=== PATIENT | male | born 1945 | race Caucasian/White ===

== ENCOUNTER 2016-11-10 00:12 | Inpatient (IN) | payer MEDICARE, OTHER ==
[2016-11-10] VITALS (12 sets, daily range): BP systolic 111–139; BP diastolic 59–73; PULSE 82–162; RESP 18; Ht 167.6 cm; Wt 63.9 kg
[~2016-11-10] VITALS: Ht 167.6 cm; Wt 63.9 kg
[2016-11-10] MEDS ORDERED: ASPIRIN 325 MG TAB PO STA (00:19)
[2016-11-10] MEDS ORDERED: ONDANSETRON 4 MG INJ IV STA (00:19)
[2016-11-10] MEDS ORDERED: SOD CHLORIDE 0.9% 1,000 ML IV STA (00:19)
--- NOTE | 2016-11-10 01:19 | RADRPT ---
PROCEDURE: XR Chest. CLINICAL INDICATION: Patient experiencing Chest Pain. TECHNIQUE: Single frontal chest x-ray. COMPARISON: None. FINDINGS: The heart does not appear to be grossly enlarged. There is minimal prominence of the lung interstit ium likely minimal chronic changes. No focal lung consolidation is seen. The patient appears to lik mic be status post CABG. Calcification in the aortic arch. ECG leads are projected over the chest. . IMPRESSION: 1. There is no acute cardiopulmonary process. RPTAT: HJES .Ranjan Calvo MD, MD Date Time Electronically viewed and signed by .Ranjan Cavlo MD, MD on 11/10/2016 01:19 .S/
[2016-11-10 01:22] LABS: BASOPHIL # 0.2 10^3/ul (0.0-0.1); BASOPHILS % 1.7 % (0.0-2.0); EOSINOPHILS # 0.2 10^3/ul (0.0-0.5); HEMATOCRIT 30.9 % (42.0-52.0); HEMOGLOBIN 10.1 g/dl (14.0-18.0); LYMPHOCYTES # 1.6 10^3/ul (0.8-2.9); LYMPHOCYTES % 16.7 % (15.0-51.0); MEAN CORPUSCULAR HEMOGLOBIN 25.8 pg (29.0-33.0); MEAN CORPUSCULAR HGB CONC 32.7 g/dl (32.0-37.0); MEAN CORPUSCULAR VOLUME 78.9 fl (82.0-101.0); MEAN PLATELET VOLUME 10.4 fl (7.4-10.4); MONOCYTE # 0.7 10^3/ul (0.3-0.9); MONOCYTES % 7.2 % (0.0-11.0); NEUTROPHIL # 6.8 10^3/ul (1.6-7.5); NEUTROPHILS % 72.4 % (39.0-77.0); PLATELET COUNT 329 10^3/UL (140-440); RED BLOOD COUNT 3.91 10^6/ul (4.70-6.10); UNCORRECTED WBC 9.3 10^3/ul (4.8-10.8); WHITE BLOOD COUNT 9.3 10^3/ul (4.8-10.8)
[2016-11-10 01:28] LABS: ALBUMIN 3.5 g/dl (3.3-4.9); INR 1.17; PARTIAL THROMBOPLASTIN TIME 29.9 Sec (25.0-35.0); POTASSIUM 5.5 mmol/L (3.5-5.1); PT RATIO 1.2
[2016-11-10 01:30] LABS: BILIRUBIN,INDIRECT 0.2 mg/dl (0-1.1); BILIRUBIN,TOTAL 0.2 mg/dl (0.2-1.3); CREATININE 2.29 mg/dl (0.61-1.24)
[2016-11-10] MEDS ORDERED: METOPROLOL 5 MG INJ IV ONE (01:30)
[2016-11-10 01:31] LABS: ALBUMIN/GLOBULIN RATIO 0.76; CALCIUM 9.3 mg/dl (8.4-10.2); TOTAL PROTEIN 8.1 g/dl (6.1-8.1)
[2016-11-10 01:41] LABS: CONDITION 1; LH ANALYZER COMMENTS 1
[2016-11-10 02:10] LABS: TROPONIN-I 0.134 ng/ml (0.00-0.12)
[2016-11-10 02:36] LABS: ADD UMIC YES; URINE BILIRUBIN (Dip) NEGATIVE (NEGATIVE); URINE BLOOD (Dip) NEGATIVE (NEGATIVE); URINE COLOR LT. YELLOW (YELLOW); URINE GLUCOSE (Dip) NEGATIVE (NEGATIVE); URINE KETONES (Dip) NEGATIVE (NEGATIVE); URINE LEUKOCYTE ESTERASE (Dip) NEGATIVE (NEGATIVE); URINE NITRITE (Dip) NEGATIVE (NEGATIVE); URINE TOTAL PROTEIN (Dip) 2+ (NEGATIVE); URINE UROBILINOGEN (Dip) 0.2 E.U./dL (0.1-1.0)
[2016-11-10] MEDS ORDERED: NA POLYST SULFON 15 GM/60 ML BTL PO ONE (03:00)
[2016-11-10 03:19] LABS: BACTERIA,URINE MANY; SQUAMOUS EPITHELIAL CELL,UR FEW; URINE RBCS 0-2 /HPF (0)
[2016-11-10] MEDS ORDERED: ONDANSETRON 4 MG INJ IV PRN ×2 (03:30→08:00)
[2016-11-10] MEDS ORDERED: ACETAMINOPHEN 325 MG TAB PO PRN ×2 (03:30→08:00)
--- NOTE | 2016-11-10 04:28 | ERA ---
ER Documentation Chief Complaint Date/Time DATE: 11/10/16 TIME: 04:01 Chief Complaint generalized weakness, loss of appetite X6 days HPI This 71-year-old male was brought to the ER with generalized weakness and dizziness for 2 days and loss of appetite for the last 6 days. He denies any pain. States that he has mild shortness of breath. Denies fevers and chills. Paramedics report stable vital signs. However on our monitors patient does have irregularly irregular tachycardia. ROS All systems reviewed and are negative except as per history of present illness. Allergies Allergies: Coded Allergies: No Known Allergy (Unverified , 11/10/16) PMhx/Soc History of Surgery: Yes (CABG X 4 VESSELS) Anesthesia Reaction: No Hx Neurological Disorder: Yes (CVA) Hx Respiratory Disorders: No Hx Cardiac Disorders: Yes (AFLUTTER, HTN, CAD, DC) Hx Psychiatric Problems: No Hx Miscellaneous Medical Probl: Yes (DM) Hx Alcohol Use: No Hx Substance Use: No Hx Tobacco Use: Yes Smoking Status: Current every day smoker Physical Exam Vitals Vital Signs Date Time Temp Pulse Resp B/P Pulse Ox O2 Delivery O2 Flow Rate FiO2 11/10/16 03:33 85 16 121/75 100 Room Air 11/10/16 02:00 69 22 140/96 100 Room Air 11/10/16 00:17 96.7 116 18 139/73 100 Physical Exam Const: [] Mild distress Head: Atraumatic Eyes: Normal Conjunctiva, EOMI, PERRLA ENT: Normal External Ears, Nose and Mouth. Neck: Full range of motion..~ No meningismus. Resp: Bibasilar rales, good air movement both lungs Cardio: Irregularly irregular tachycardia, no murmur appreciated Abd: Soft, non tender, non distended. Normal bowel sounds Skin: No petechiae or rashes Back: No midline or flank tenderness Ext: No cyanosis, or edema Neur: Awake and alert and oriented 3, does seem slightly confused, tenderness to through 12 are intact, no cerebellar deficits, gait not tested Psych: Normal Mood and Affect Result Diagram: 11/10/1610411/10/16104 Results 24 hrs Laboratory Tests Test 11/10/16 01:05 11/10/16 02:00 Activated Partial Thromboplast Time 29.9Sec Alanine Aminotransferase (ALT/SGPT) 19IU/L Albumin 3.5g/dl Albumin/Globulin Ratio 0.76 Alkaline Phosphatase 139IU/L Anion Gap 22 Aspartate Amino Transf (AST/SGOT) 21IU/L B-Type Natriuretic Peptide 82629PJ/ML Basophils # 0.210^3/ul Basophils % 1.7% Blood Morphology Comment Blood Urea Nitrogen 55mg/dl Calcium Level 9.3mg/dl Carbon Dioxide Level 17mmol/L Chloride Level 105mmol/L Creatinine 2.29mg/dl Direct Bilirubin 0.00mg/dl Eosinophils # 0.210^3/ul Eosinophils % 2.0% Globulin 4.60g/dl Glucose Level 139mg/dl Hematocrit 30.9% Hemoglobin 10.1g/dl INR International Normalized Ratio 1.17 Indirect Bilirubin 0.2mg/dl Lymphocytes # 1.610^3/ul Lymphocytes % 16.7% Mean Corpuscular Hemoglobin 25.8pg Mean Corpuscular Hemoglobin Concent 32.7g/dl Mean Corpuscular Volume 78.9fl Mean Platelet Volume 10.4fl Monocytes # 0.710^3/ul Monocytes % 7.2% Neutrophils # 6.810^3/ul Neutrophils % 72.4% Nucleated Red Blood Cells # 0.010^3/ul Nucleated Red Blood Cells % 0.0/100WBC Platelet Count 88945^3/UL Potassium Level 5.5mmol/L Prothrombin Time 15.0Sec Prothrombin Time Ratio 1.2 Red Blood Count 3.9110^6/ul Red Cell Distribution Width 18.0% Sodium Level 138mmol/L Total Bilirubin 0.2mg/dl Total Protein 8.1g/dl Troponin I 0.134ng/ml White Blood Count 9.310^3/ul Urine Bacteria MANY Urine Bilirubin NEGATIVE Urine Clarity CLEAR Urine Color LT. YELLOW Urine Glucose NEGATIVE% Urine Hemoglobin NEGATIVE Urine Ketones NEGATIVE Urine Leukocyte Esterase NEGATIVE Urine Microscopic RBC 0-2/HPF Urine Microscopic WBC 0-2/HPF Urine Nitrite NEGATIVE Urine Specific [place] 1.025 Urine Squamous Epithelial Cells FEW Urine Total Protein 2+ Urine Urobilinogen 0.2 E.U./dL Urine pH 5.5 Current Medications Medications (Trade) Dose Ordered Sig/Gerardo Route PRN Reason Start Time Stop Time Status Last Admin Dose Admin Sodium Chloride (NS) 1,000 ml @ 1,000 mls/hr Q1H STAT IV 11/10/16 00:19 11/10/16 01:18 DC 11/10/16 01:24 Aspirin (Aspirin) 325 mg ONCE STAT PO 11/10/16 00:19 11/10/16 00:23 DC 11/10/16 01:23 Ondansetron HCl (Zofran Inj) 4 mg ONCE STAT IV 11/10/16 00:19 11/10/16 00:24 DC 11/10/16 01:23 Metoprolol Tartrate (Lopressor) 5 mg ONCE ONCE IV 11/10/16 01:30 11/10/16 01:31 DC 11/10/16 01:23 Sodium Polystyrene Sulfonate (Kayexalate) 30 gm ONCE ONCE PO 11/10/16 03:00 11/10/16 03:01 DC 11/10/16 03:17 Ondansetron HCl (Zofran Inj) 4 mg ER BRIDGE PRN IV NAUSEA AND/OR VOMITING 11/10/16 03:30 11/11/16 03:29 Acetaminophen (Tylenol Tab) 650 mg ER BRIDGE PRN PO MILD PAIN/FEVER 11/10/16 03:30 11/11/16 03:29 Procedures/MDM Elderly male with new onset A. letter with RVR, acute kidney injury, hyperkalemia, congestive heart failure. Atrial flutter is likely causing his symptoms of dizziness and shortness of breath. His son arrived and gave me the history that he does not like to drink water. He likely has decreased thirst drive due to age. He states that he does not get hungry either. He has been on medication for his heart before but does not take it. He remained in a flutter with RVR until he was given metoprolol 5 mg IV. After this his heart rate became rate controlled atrial fibrillation and he said that he no longer felt dizzy or weak. Symptoms had resolved Medication noncompliance is deathly a factor. Is given a liter of IV fluid for his renal failure and Kayexalate for his potassium. His also given aspirin for elevated troponin. No additional fluids were given because of his concomitant congestive heart failure with a BNP of almost 20,000. He is being admitted to telemetry for further monitoring and management. A spoke with Dr. Devlin who will be admitting. EKG interpretation: Atrial flutter with very little AV block rate of 116, bifascicular block, right axis deviation, no apparent ST or T-wave changes concerning for STEMI traffic operations engineer interpretation: Initial A. fib and a flutter with RVR phone by rate controlled A. fib after metoprolol Chest x-ray interpretation: I see no acute processes no widened mediastinum and pneumothorax no pulmonary edema, no fractures Critical care time 44 minutes: This includes time spent managing ill-appearing patient with a flutter with RVR, careful fluid administration with concomitant CHF, metoprolol vasoactive medication usage, multiple visits patient's bedside assessing his status and reassess fluid status, chart review, discussion with patient, family, admitting doctor. This does not include billable procedures Departure Diagnosis: Primary Impression: Atrial flutter with rapid ventricular response Additional Impressions: New onset atrial flutter Congestive heart failure Acute kidney injury Hyperkalemia FRANK PACHECO DO Nov 10, 2016 04:14
[2016-11-10] MEDS ORDERED: morphine 2 MG INJ IV PRN ×2 (05:30→08:00)
[2016-11-10] MEDS ORDERED: NACL 0.9% 3 ML SYG IV SCH (08:00)
[2016-11-10] MEDS ORDERED: DOCUSATE SODIUM 100 MG CAP PO PRN (08:00)
[2016-11-10] MEDS ORDERED: HYDROCODONE/APAP (5/325) TAB PO PRN (08:00)
[2016-11-10] MEDS ORDERED: NITROGLYCERIN (SL) 0.4 MG TAB SL PRN (08:00)
[2016-11-10 08:10] LABS: CREATINE KINASE < 20 IU/L (23-200)
[2016-11-10 08:14] LABS: CK-MB 0.59 ng/ml (0.0-2.4)
[2016-11-10 08:17] LABS: CHOL/HDL RATIO 9.9 RATIO
[2016-11-10] MEDS: ENOXAPARIN 30 MG/0.3 ML SYG SC SCH (08:59)
--- NOTE | 2016-11-10 12:08 | HP ---
DATE OF ADMISSION: 11/10/2016 TIME: 7:15 a.m. CHIEF COMPLAINT: Palpitations. HISTORY OF PRESENT ILLNESS: The patient is a 71-year-old male with a history of coronary artery dis ease, status post bypass surgery in the past. The patient appears to have some dementia as well as he is a poor historian, presents to the ED with complaint of palpitations with weakness and dizzines s for 2 days and loss of appetite for several days. The patient's main issue, though, is the palpit ations. In the ED, he was found to have a flutter. He denies any history of any arrhythmias in the past, has no new complaints at this time. The patient once again does appear to be demented. PAST MEDICAL HISTORY: Coronary artery disease, status post coronary artery bypass graft in the past . His remaining medical history is unclear at this time but according to the ER report, the patient has history of atrial flutter, hypertension, coronary artery disease as well as SC and CVA and also question of diabetes. HOME MEDICATIONS: None reported. ALLERGIES: NO KNOWN DRUG ALLERGIES. FAMILY HISTORY: Noncontributory. SOCIAL HISTORY: According to the ER report, no reports of alcohol abuse, no substance abuse reporte d. The patient does smoke daily. REVIEW OF SYSTEMS: A 12-point review of systems negative except that in the HPI. PHYSICAL EXAMINATION: VITAL SIGNS: Temperature is 97.4, pulse now is 96, respiratory rate 18, BP is 139/71, saturation 99 % on room air. GENERAL: No acute distress, alert and oriented to his name but nothing else. HEENT: Normocephalic, atraumatic. LUNGS: Clear to auscultation. CARDIOVASCULAR: Irregularly irregular. ABDOMEN: Nondistended, nontender, soft. EXTREMITIES: No clubbing, cyanosis, or edema. LABORATORIES: White count is 10.3, hemoglobin 7.1, platelets 229. Chemistry: Sodium is 138, potas sium is 5.5, creatinine is 2.29, BUN is 55. Troponins 0.134. BNP is 19,600. INR is 1.17. UA is w ithin normal limits except for 2+ protein. DIAGNOSTICS: Chest x-ray shows no acute cardiopulmonary process. The EKG shows atrial flutter. ASSESSMENT AND PLAN: 1. Palpitations secondary to atrial flutter. The patient has a history of this in the past. His r ate is currently stable and is below 100. Will obtain a cardiology consultation. 2. Demand ischemia. The patient's troponins are slightly elevated. We will trend troponins. We w ill follow up cardiology recommendations. 3. History of cerebrovascular accident. No acute issues. 4. History of coronary artery disease, status post CABG in the past. 5. Microcytic anemia, possibly secondary to chronic disease. Check an iron panel. 6. Acute versus chronic kidney disease. Patient's baseline creatinine is not known at this time. Will monitor. 7. Prophylaxis. Lovenox. Dictated By: IRIS MCCOLLUM MD BS/NTS Conf#: [id number] DID#: [id number]
--- NOTE | 2016-11-10 12:25 | CONS ---
Date/Time of Note Date/Time of Note DATE: 11/10/16 TIME: 12:15 Assessment/Plan Assessment/Plan Chief Complaint/Hosp Course ?Paroxysmal atrial flutter with RVR: unclear if this is a new diagnosis. His rates are now controlled on coreg. His CHADSVASC is at least 6 and he needs anticoagulation. The son tells me he may be on one so will wait to see ( presumably not on coumadin as INR is ok). I do not think he is in heart failure by exam. Chest pain: likely feeling his palpitations and not actual angina though it is certainly possible with his h/o CAD/CABG. Trops mildly elevated but type II in setting of aflutter with RVR. He may benefit from stress testing possibly even outpt. CAD s/p CAB years ago but no other details known KRIS vs CKD: unknown baseline. H/o CVA HTN DM -continue coreg -will need to obtain med list from family to decide on anticoagulation strategy -will follow Problems: Consultation Date/Type/Reason Admit Date/Time Nov 10, 2016 at 03:07 Date of Consultation: Nov 10, 2016 Type of Consultation: Cardiology Reason for Consultation aflutter Referring Provider: IRIS MCCOLLUM Hx of Present Illness 71 yo M with a h/o CAD s/p CABG (8 yrs ago, unknown details), CKD (unknown baseline), CVA with residual weakness, DM, HTN, who presented with weakness and poor appetitis and was found to have atrial flutter with RVR. The pt is a poor historian and is very upset that his family is not at the bedside. He does note that for the past 3 days he has been feeling a sharp pain in his chest which has now resolved after his HR was controlled. I was able to speak with his son by phone. He tells me that they do not think he has had a h/o any heart arrhythmias but he also states that his father was placed on a "blood thinner" after his stroke. He was unable to locate the medication list to tell me what exactly he is taking but he will call back to give us the names. per HPI Social History Smoking Status: Current every day smoker Exam/Review of Systems Vital Signs Vitals Vital Signs Date Time Temp Pulse Resp B/P Pulse Ox O2 Delivery O2 Flow Rate FiO2 11/10/16 11:28 98.1 94 18 123/73 95 11/10/16 03:33 Room Air Exam Constitutional: alert, oriented Psych: no complaints, No nl mood/affect Head: atraumatic, normocephalic Neck: No jvd Respiratory: clear to auscultation, diminished breath sounds Cardiovascular: systolic murmur (2/6), No regular rate and rhythm Gastrointestinal: soft Extremities: normal pulses, No edema Neurological: nl mental status, nl speech Results Result Diagram: 11/10/16 01011/10/16 0105 Results 24 hrs Laboratory Tests Test 11/10/16 01:05 11/10/16 02:00 11/10/16 07:15 Activated Partial Thromboplast Time 29.9 Alanine Aminotransferase (ALT/SGPT) 19 Albumin 3.5 Albumin/Globulin Ratio 0.76 Alkaline Phosphatase 139 H Anion Gap 22 H Aspartate Amino Transf (AST/SGOT) 21 B-Type Natriuretic Peptide 32546 H Basophils # 0.2 H Basophils % 1.7 Blood Morphology Comment Blood Urea Nitrogen 55 H Calcium Level 9.3 Carbon Dioxide Level 17 L Chloride Level 105 Cholesterol Level 159 Cholesterol/HDL Ratio 9.9 Creatinine 2.29 H Direct Bilirubin 0.00 Eosinophils # 0.2 Eosinophils % 2.0 Globulin 4.60 H Glucose Level 139 HDL Cholesterol 16 L Hematocrit 30.9 L Hemoglobin 10.1 L Hemoglobin A1c 5.9 INR International Normalized Ratio 1.17 Indirect Bilirubin 0.2 LDL Cholesterol, Calculated 115 Lymphocytes # 1.6 Lymphocytes % 16.7 Mean Corpuscular Hemoglobin 25.8 L Mean Corpuscular Hemoglobin Concent 32.7 Mean Corpuscular Volume 78.9 L Mean Platelet Volume 10.4 Monocytes # 0.7 Monocytes % 7.2 Neutrophils # 6.8 Neutrophils % 72.4 Nucleated Red Blood Cells # 0.0 Nucleated Red Blood Cells % 0.0 Platelet Count 329 Potassium Level 5.5 H Prothrombin Time 15.0 H Prothrombin Time Ratio 1.2 Red Blood Count 3.91 L Red Cell Distribution Width 18.0 H Sodium Level 138 Total Bilirubin 0.2 Total Protein 8.1 Triglycerides Level 141 Troponin I 0.134 *H 0.110 White Blood Count 9.3 Urine Bacteria MANY Urine Bilirubin NEGATIVE Urine Clarity CLEAR Urine Color LT. YELLOW Urine Glucose NEGATIVE Urine Hemoglobin NEGATIVE Urine Ketones NEGATIVE Urine Leukocyte Esterase NEGATIVE Urine Microscopic RBC 0-2 Urine Microscopic WBC 0-2 Urine Nitrite NEGATIVE Urine Specific [place] 1.025 Urine Squamous Epithelial Cells FEW Urine Total Protein 2+ H Urine Urobilinogen 0.2 E.U./dL Urine pH 5.5 Creatine Kinase < 20 L Creatine Kinase Index Creatinine Kinase MB (Mass) 0.59 Prealbumin 9.7 L Medications Medications Current Medications Morphine Sulfate (morphine) 2 mg Q2H PRN IV PAIN; Start 11/10/16 at 05:30 Ondansetron HCl (Zofran Inj) 4 mg Q6H PRN IV NAUSEA AND/OR VOMITING; Start 11/10 at 08:00 Acetaminophen (Tylenol Tab) 650 mg Q6H PRN PO PAIN LEVEL 1-3 OR FEVER; Start at 08:00 Acetaminophen/ Hydrocodone Bitart ([place] (5/325)) 1 tab Q6H PRN PO MODERATE PAIN LEVEL 4-6; Start 11/10/16 at 08:00 Morphine Sulfate (morphine) 2 mg Q4H PRN IV SEVERE PAIN LEVEL 7-10; Start at 08:00 Docusate Sodium (Colace) 100 mg Q12H PRN PO CONSTIPATION; Start 11/10/16 at 08: 00 Enoxaparin Sodium (Lovenox) 30 mg DAILY SC Last administered on 11/10/16 08:59 ; Admin Dose 30 MG; Start 11/10/16 at 09:00 Carvedilol (Coreg) 6.25 mg BID PO Last administered on 11/10/16 08:59; Admin Dose 6.25 MG; Start 11/10/16 at 09:00 Nitroglycerin (Nitroglycerin (Sl Tab) 0.4 Mg) 1 tab Q5M PRN SL CHEST PAIN; Start 11/10/16 at 08:00 PAULINO RASCON Nov 10, 2016 12:25
[2016-11-10] MEDS ORDERED: MAGNESIUM HYDROXIDE 30ML CUP PO ONE (12:30)
[2016-11-10 12:50] LABS: CREATINE KINASE < 20 IU/L (23-200)
[2016-11-10 13:00] LABS: CK-MB 0.61 ng/ml (0.0-2.4)
[2016-11-10] MEDS ORDERED: COLC0.6T6 PO (20:01)
[2016-11-10] MEDS ORDERED: METF500T4 PO (20:01)
[2016-11-10] MEDS ORDERED: CLOP75TA4 PO (20:01)
[2016-11-10] MEDS ORDERED: FER325 PO (20:01)
[2016-11-10] MEDS ORDERED: TAMS0.4C2 PO (20:01)
[2016-11-10] MEDS ORDERED: ENAL20TA PO (20:01)
[2016-11-10] MEDS ORDERED: FEBU80TA PO (20:01)
[2016-11-10] MEDS ORDERED: ISOS10TA2 PO (20:01)
[2016-11-10] MEDS ORDERED: ASPI-664 PO (20:01)
[2016-11-10] MEDS ORDERED: FURO20TA3 PO (20:01)
[2016-11-10] MEDS ORDERED: ATOR40TA68 PO (20:01)
[2016-11-10] MEDS ORDERED: ESOM40CA PO (20:01)
[2016-11-10] MEDS ORDERED: DOCU-159 PO (20:01)
[2016-11-10] MEDS ORDERED: COLCHICINE 0.6 MG TAB PO SCH (21:00)
[2016-11-10] MEDS: LORAZEPAM 2 MG INJ IV PRN (21:12)
[2016-11-10] MEDS: TAMSULOSIN (SR) 0.4 MG CAP PO SCH (21:12)
[2016-11-10] MEDS: FERROUS SULFATE (EC) 325 MG TAB PO SCH (21:13)
[2016-11-10] MEDS: ISOSORBIDE DINITRATE 10 MG TAB PO SCH (21:13)
[2016-11-10] MEDS: ATORVASTATIN 40 MG TAB PO SCH (21:13)
[2016-11-10] MEDS: DOCUSATE SODIUM 100 MG CAP PO SCH (21:20)
[2016-11-10] MEDS: ASPIRIN (EC) 81 MG TAB PO SCH (21:21)
[2016-11-10] MEDS ORDERED: HALOPERIDOL 5 MG INJ IM PRN (22:30)
[2016-11-10] MEDS: ENALAPRIL 20 MG TAB PO SCH (22:37)
[2016-11-10] MEDS: COLCHICINE 0.6 MG TAB PO SCH (22:37)
[2016-11-11] VITALS (19 sets, daily range): BP systolic 94–134; BP diastolic 55–72; PULSE 77–211; RESP 16–20
[2016-11-11] MEDS: PANTOPRAZOLE (EC) 40 MG TAB PO SCH (05:46)
[2016-11-11] MEDS: FUROSEMIDE 20 MG TAB PO SCH (05:47)
[2016-11-11] MEDS: CLOPIDOGREL 75 MG TAB PO SCH (08:15)
[2016-11-11] MEDS: metFORMIN 500 MG TAB PO SCH (08:15)
[2016-11-11] MEDS: ASPIRIN (EC) 81 MG TAB PO SCH (08:16)
[2016-11-11] MEDS: FERROUS SULFATE (EC) 325 MG TAB PO SCH ×2 (08:16→20:08)
[2016-11-11] MEDS: DOCUSATE SODIUM 100 MG CAP PO SCH (08:16)
[2016-11-11] MEDS: COLCHICINE 0.6 MG TAB PO SCH ×2 (08:16→20:07)
[2016-11-11] MEDS: ISOSORBIDE DINITRATE 10 MG TAB PO SCH ×2 (08:17→20:08)
[2016-11-11] MEDS: ENALAPRIL 20 MG TAB PO SCH (08:18)
[2016-11-11] MEDS: ENOXAPARIN 30 MG/0.3 ML SYG SC SCH (08:19)
[2016-11-11] MEDS: FEBUXOSTAT 40 MG TABLET PO SCH (08:27)
[2016-11-11] MEDS ORDERED: NON-FORMULARY/PATIENT OWN MED (Esomeprazole Mag Trihydrate (Nexium) 40 MG) PO SCH (09:00)
--- NOTE | 2016-11-11 09:30 | RADRPT ---
Echocardiogram Report Patient Name: MARII SANTIZO Gender: Male Date: 1945 Study Date: 10-Nov-2016 Account Financial Manager: SADA Location: I Height(Cm): 168 Weight(Kg): 64 BSA: 1.72 Ref. Physician: IRIS MCCOLLUM Quality: Adequate Procedures: Transthoracic echocardiogram with 2D, M-Mode, and Doppler examination, no subcostal images. Indications: Atrial Flutter. 2D/M Mode Doppler Measurement Value Normal Ranges Measurement Value Normal Ranges AoR Diam MM 3.0 cm AV Peak Ananth 1.5 m/sec ACS MM 1.5 cm AV Peak PG 9.2 mmHg LVIDd 2D 6.7 3.5 - 5.6 cm LVOT Peak Ananth 0.6 m/sec LVIDs 2D 5.5 2.1 - 4.1 cm LVOT Peak PG 1.4 mmHg LVPWd 2D 1.0 0.6 - 1.1 cm MV E Peak Ananth 1.1 m/sec IVSd 2D 1.0 0.6 - 1.1 cm MV A Peak Ananth 0.3 m/sec EDV 2D 228.4 cm3 MV E/A 3.5 ESV 2D 167.3 cm3 MV Decel Time 174 msec LA Dimen 2D 3.4 2.3 - 4.0 cm MV Decel [place] 6 MV E/A 3.5 TR Peak Ananth 2.1 m/sec TR Peak PG 18.2 mmHg PV Peak Ananth 1.0 m/sec PV Peak PG 4.0 mmHg RVSP 21.2 mmHg Findings Left Ventricle: Normal left ventricular wall thickness. Severe enlargement of left ventricle cavity. Severe left ventricular systolic dysfunction. Ejection fraction is visually estimated at 20 %. Resting Segmental Wall Motion Analysis: Severe global hypokinesis with akineis of the basal inferior and inferolateral dunlap and anterolateral wall. There is abnormal septal motion consistent with prior cardiac surgery. Right Ventricle: Normal right ventricular size. Normal right ventricular systolic function. Left Atrium: There is moderate enlargement of left atrium. Right Atrium: The right atrium is normal in size. Atrial Septum: Not well visualized. Mitral Valve: Mitral valve leaflets appear mildly thickened. Mild mitral annular calcification. Mild to moderate mitral valve regurgitation. Aortic Valve: No significant aortic stenosis or insufficiency. Aortic sclerosis without stenosis. Tricuspid Valve: Normal appearance of the tricuspid valve. Estimated peak PA systolic pressure 18 mmHg. There is trace to mild tricuspid regurgitation. Pulmonic Valve: Normal pulmonic valve appearance. There is mild pulmonic regurgitation. Pericardium: Normal pericardium with no significant pericardial effusion. Aorta: Normal aortic root. IVC: The IVC is not well visualized. Pulmonary Artery: Normal pulmonary artery size. Conclusions 1.Normal left ventricular wall thickness. Severe enlargement of left ventricle cavity. Severe left ventricular systolic dysfunction. Ejection fraction is visually estimated at 20 %. Severe global hypokinesis with akinesis of the basal inferior and inferolateral dunlap and anterolateral wall. There is abnormal septal motion consistent with prior cardiac surgery. 2.Mild to moderate mitral valve regurgitation. 3.Estimated peak PA systolic pressure 18 mmHg plus RA pressure. Electronically Signed By: Senthil Gabriel 11-Nov-2016 09:29:12 -0800 Patient Name: MARII SANTIZO Study Date: 10-Nov-2016 [id number]
[2016-11-11 09:35] LABS: BASOPHILS % 0.1 % (0.0-2.0); EOSINOPHILS # 0.1 10^3/ul (0.0-0.5); EOSINOPHILS % 1.9 % (0.0-7.0); HEMOGLOBIN 8.8 g/dl (14.0-18.0); LYMPHOCYTES # 1.6 10^3/ul (0.8-2.9); LYMPHOCYTES % 24.1 % (15.0-51.0); MEAN CORPUSCULAR HEMOGLOBIN 25.9 pg (29.0-33.0); MEAN CORPUSCULAR HGB CONC 32.5 g/dl (32.0-37.0); MEAN CORPUSCULAR VOLUME 79.6 fl (82.0-101.0); MEAN PLATELET VOLUME 10.1 fl (7.4-10.4); MONOCYTE # 0.3 10^3/ul (0.3-0.9); MONOCYTES % 4.6 % (0.0-11.0); NEUTROPHIL # 4.6 10^3/ul (1.6-7.5); NEUTROPHILS % 69.3 % (39.0-77.0); PLATELET COUNT 269 10^3/UL (140-440); RED BLOOD COUNT 3.39 10^6/ul (4.70-6.10); RED CELL DISTRIBUTION WIDTH 17.8 % (11.5-14.5); UNCORRECTED WBC 6.6 10^3/ul (4.8-10.8); WHITE BLOOD COUNT 6.6 10^3/ul (4.8-10.8)
[2016-11-11 09:39] LABS: CONDITION 1; LH ANALYZER COMMENTS 1
[2016-11-11 09:43] LABS: CREATININE 2.03 mg/dl (0.61-1.24)
[2016-11-11 09:44] LABS: MAGNESIUM 2.1 mg/dl (1.7-2.5); PHOSPHORUS 3.6 mg/dl (2.5-4.9)
--- NOTE | 2016-11-11 12:10 | CONS ---
Date/Time of Note Date/Time of Note DATE: 11/11/16 TIME: 12:03 Assessment/Plan Assessment/Plan Chief Complaint/Hosp Course ?Paroxysmal atrial flutter with RVR: unclear if this is a new diagnosis. Back in sinus. His CHADSVASC is at least 6 and he needs anticoagulation. The son tells me he may be on one so will wait to see (presumably not on coumadin as INR is ok). Cardiomyopathy: EF 20%. Likely chronic. Compensated on my exam NSVT vs SVT with aberrancy: up to 24 beats, no symptoms. Started irregular and then sped up and was regular so may be afib/flutter with aberrancy. NSVT certainly possible with low EF. Will uptitrate coreg. ?EP eval as inpt vs outpt. Chest pain: likely feeling his palpitations (sharp) and not actual angina though it is certainly possible with his h/o CAD/CABG. Trops mildly elevated but type II in setting of aflutter with RVR. CAD s/p CAB years ago but no other details known KRIS vs CKD: unknown baseline. Improved H/o CVA HTN DM -increase coreg to 12.5mg BID -ASA, plavix -lipitor -enalapril -still waiting for family to bring list of meds to see if pt is already on anticoagulation (unable to reach today and nobody at bedside) -will follow Problems: Consultation Date/Type/Reason Admit Date/Time Nov 10, 2016 at 03:07 Initial Consult Date 11/10/16 Type of Consultation: Cardiology Referring Provider: IRIS MCCOLLUM 24 HR Interval Summary Free Text/Dictation Had up to 24 beats of NSVT vs SVT with aberrancy. Pt refuses to speak with me this am. Unable to reach family. Exam/Review of Systems Vital Signs Vitals Vital Signs Date Time Temp Pulse Resp B/P Pulse Ox O2 Delivery O2 Flow Rate FiO2 11/11/16 11:26 98.0 81 18 104/58 95 11/11/16 04:00 Mechanical Ventilator Intake and Output 11/10/16 11/10/16 11/11/16 15:00 23:00 07:00 Intake Total 650 ml 300 ml Output Total 550 ml Balance 100 ml 300 ml Exam Constitutional: alert Psych: no complaints Head: atraumatic, normocephalic Neck: jvd (6cm) Respiratory: clear to auscultation Cardiovascular: regular rate and rhythm, systolic murmur (2/6), No edema Gastrointestinal: soft Neurological: No nl mental status, No nl speech Results Result Diagram: 11/11/1691111/11/16 0912 Results 24 hrs Laboratory Tests Test 11/10/16 12:27 11/10/16 18:55 11/11/16 09:12 Creatine Kinase < 20 L Creatine Kinase Index Creatinine Kinase MB (Mass) 0.61 Troponin I 0.100 0.098 Anion Gap 17 H Basophils # 0.0 Basophils % 0.1 Blood Morphology Comment Blood Urea Nitrogen 46 H Calcium Level 9.0 Carbon Dioxide Level 20 L Chloride Level 108 Creatinine 2.03 H Eosinophils # 0.1 Eosinophils % 1.9 Glucose Level 144 Hematocrit 27.0 L Hemoglobin 8.8 L Lymphocytes # 1.6 Lymphocytes % 24.1 Magnesium Level 2.1 Mean Corpuscular Hemoglobin 25.9 L Mean Corpuscular Hemoglobin Concent 32.5 Mean Corpuscular Volume 79.6 L Mean Platelet Volume 10.1 Monocytes # 0.3 Monocytes % 4.6 Neutrophils # 4.6 Neutrophils % 69.3 Nucleated Red Blood Cells # 0.0 Nucleated Red Blood Cells % 0.0 Phosphorus Level 3.6 Platelet Count 269 Potassium Level 5.0 Red Blood Count 3.39 L Red Cell Distribution Width 17.8 H Sodium Level 140 White Blood Count 6.6 # Medications Medications Current Medications Morphine Sulfate (morphine) 2 mg Q2H PRN IV PAIN; Start 11/10/16 at 05:30 Ondansetron HCl (Zofran Inj) 4 mg Q6H PRN IV NAUSEA AND/OR VOMITING; Start 11/10 at 08:00 Acetaminophen (Tylenol Tab) 650 mg Q6H PRN PO PAIN LEVEL 1-3 OR FEVER; Start at 08:00 Acetaminophen/ Hydrocodone Bitart ([place] (5/325)) 1 tab Q6H PRN PO MODERATE PAIN LEVEL 4-6; Start 11/10/16 at 08:00 Morphine Sulfate (morphine) 2 mg Q4H PRN IV SEVERE PAIN LEVEL 7-10; Start at 08:00 Docusate Sodium (Colace) 100 mg Q12H PRN PO CONSTIPATION; Start 11/10/16 at 08: 00 Enoxaparin Sodium (Lovenox) 30 mg DAILY SC Last administered on 11/11/16 08:19 ; Admin Dose 30 MG; Start 11/10/16 at 09:00 Nitroglycerin (Nitroglycerin (Sl Tab) 0.4 Mg) 1 tab Q5M PRN SL CHEST PAIN; Start 11/10/16 at 08:00 Aspirin (Halfprin) 81 mg DAILY PO Last administered on 11/11/16 08:16; Admin Dose 81 MG; Start 11/10/16 at 20:30 Atorvastatin Calcium (Lipitor) 20 mg QHS PO Last administered on 11/10/16 21:13 ; Admin Dose 20 MG; Start 11/10/16 at 21:00 Clopidogrel Bisulfate (plaVIX) 75 mg DAILY PO Last administered on 11/11/16 08: 15; Admin Dose 75 MG; Start 11/11/16 at 09:00 Docusate Sodium (Colace) 100 mg DAILY PO Last administered on 11/11/16 08:16; Admin Dose 100 MG; Start 11/10/16 at 20:30 Enalapril Maleate (Vasotec) 20 mg DAILY PO Last administered on 11/10/16 22:37 ; Admin Dose 20 MG; Start 11/10/16 at 20:30 Febuxostat (Uloric) 80 mg DAILY PO Last administered on 11/11/16 08:27; Admin Dose 80 MG; Start 11/11/16 at 09:00 Ferrous Sulfate (Ferrous Sulfate (Ec)) 325 mg BID PO Last administered on 08:16; Admin Dose 325 MG; Start 11/10/16 at 21:00 Furosemide (Lasix) 20 mg DAILY@06 PO Last administered on 11/11/16 05:47; Admin Dose 20 MG; Start 11/11/16 at 06:00 Isosorbide Dinitrate (Isordil) 10 mg BID PO Last administered on 11/10/16 21:13 ; Admin Dose 10 MG; Start 11/10/16 at 21:00 Tamsulosin HCl (Flomax) 0.4 mg HS PO Last administered on 11/10/16 21:12; Admin Dose 0.4 MG; Start 11/10/16 at 21:00 Colchicine (Colchicine) 0.6 mg BID PO Last administered on 11/11/16 08:16; Admin Dose 0.6 MG; Start 11/10/16 at 21:00 Pantoprazole (Protonix Tab) 40 mg DAILY@06 PO Last administered on 11/11/16 05: 46; Admin Dose 40 MG; Start 11/11/16 at 06:00 Lorazepam (Ativan) 0.5 mg Q6H PRN IV AGITATION/ANXIETY Last administered on 11/10 21:12; Admin Dose 0.5 MG; Start 11/10/16 at 21:00 Haloperidol (Haldol) 5 mg Q4 PRN IM AGITATION/ANXIETY Last administered on 22:38; Admin Dose 5 MG; Start 11/10/16 at 22:30 Carvedilol (Coreg) 12.5 mg BID PO ; Start 11/11/16 at 21:00 PAULINO RASCON Nov 11, 2016 12:10
--- NOTE | 2016-11-11 12:10 | PN ---
Date/Time of Note Date/Time of Note DATE: 11/11/16 TIME: 12:05 Assessment/Plan VTE Prophylaxis VTE Prophylaxis Intervention: LMWH Lines/Catheters IV [facility]ter [facility]from [facility] Saline Lock Urinary Cath still in place: No Assessment/Plan Chief Complaint/Hosp Course Assessment and plan 1. Suspect Paroxysmal atrial flutter with RVR. Continue on beta jahaira. Anticoagulation per cable operator. Continue telemetry monitoring. 2. Chest pain secondary to #1. Improved at present. We'll monitor for now 3. Demand ischemia likely secondary to #1. Continue on antiplatelet therapy. 4. History of CAD. Continue antiplatelet therapy and statin medication. Continue on beta jahaira and GORDY inhibitor 5. Iron deficiency anemia. Continue iron supplement 6. History of diabetes. Continue on metformin 7. Dyslipidemia. Patient to be resumed on statin medication 8. Acute on likely chronic any disease. 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 Disposition and plan: Anticoagulation per cable operator. Continue on beta jahaira. Water Valve Repairer follow for kidney dysfunction Discussed plan of care with Dr. Jackson Problems: Subjective 24 Hr Interval Summary Free Text/Dictation No apparent distress noted at this time. Exam/Review of Systems Vital Signs Vitals Vital Signs Date Time Temp Pulse Resp B/P Pulse Ox O2 Delivery O2 Flow Rate FiO2 11/11/16 11:26 98.0 81 18 104/58 95 11/11/16 04:00 Mechanical Ventilator Intake and Output 11/10/16 11/10/16 11/11/16 14:59 22:59 06:59 Intake Total 650 ml 300 ml Output Total 550 ml Balance 100 ml 300 ml Exam General: No acute signs or symptoms of distress Eyes: pupils equal round, Anicteric sclera Neck: Supple nontender, no JVD Cardiac: Irregular rate Pulmonary: No coarse rhonchi or breathing auscultated GI: Abdomen soft nontender nondistended, bowel sounds active Extremities: No edema bilateral lower extremities. Noted with slightly contracted left upper extremity Skin: Clean dry and intact Neurologic: Somnolent. Does awaken to verbal response Results Result Diagram: 11/11/1691111/11/16911 Results 24 hrs Laboratory Tests Test 11/10/16 12:27 11/10/16 18:55 11/11/16 09:12 Creatine Kinase < 20 L Creatine Kinase Index Creatinine Kinase MB (Mass) 0.61 Troponin I 0.100 0.098 Anion Gap 17 H Basophils # 0.0 Basophils % 0.1 Blood Morphology Comment Blood Urea Nitrogen 46 H Calcium Level 9.0 Carbon Dioxide Level 20 L Chloride Level 108 Creatinine 2.03 H Eosinophils # 0.1 Eosinophils % 1.9 Glucose Level 144 Hematocrit 27.0 L Hemoglobin 8.8 L Lymphocytes # 1.6 Lymphocytes % 24.1 Magnesium Level 2.1 Mean Corpuscular Hemoglobin 25.9 L Mean Corpuscular Hemoglobin Concent 32.5 Mean Corpuscular Volume 79.6 L Mean Platelet Volume 10.1 Monocytes # 0.3 Monocytes % 4.6 Neutrophils # 4.6 Neutrophils % 69.3 Nucleated Red Blood Cells # 0.0 Nucleated Red Blood Cells % 0.0 Phosphorus Level 3.6 Platelet Count 269 Potassium Level 5.0 Red Blood Count 3.39 L Red Cell Distribution Width 17.8 H Sodium Level 140 White Blood Count 6.6 # Medications Medications Current Medications Morphine Sulfate (morphine) 2 mg Q2H PRN IV PAIN; Start 11/10/16 at 05:30 Ondansetron HCl (Zofran Inj) 4 mg Q6H PRN IV NAUSEA AND/OR VOMITING; Start 11/10 at 08:00 Acetaminophen (Tylenol Tab) 650 mg Q6H PRN PO PAIN LEVEL 1-3 OR FEVER; Start at 08:00 Acetaminophen/ Hydrocodone Bitart ([place] (5/325)) 1 tab Q6H PRN PO MODERATE PAIN LEVEL 4-6; Start 11/10/16 at 08:00 Morphine Sulfate (morphine) 2 mg Q4H PRN IV SEVERE PAIN LEVEL 7-10; Start at 08:00 Docusate Sodium (Colace) 100 mg Q12H PRN PO CONSTIPATION; Start 11/10/16 at 08: 00 Enoxaparin Sodium (Lovenox) 30 mg DAILY SC Last administered on 11/11/16 08:19 ; Admin Dose 30 MG; Start 11/10/16 at 09:00 Nitroglycerin (Nitroglycerin (Sl Tab) 0.4 Mg) 1 tab Q5M PRN SL CHEST PAIN; Start 11/10/16 at 08:00 Aspirin (Halfprin) 81 mg DAILY PO Last administered on 11/11/16 08:16; Admin Dose 81 MG; Start 11/10/16 at 20:30 Atorvastatin Calcium (Lipitor) 20 mg QHS PO Last administered on 11/10/16 21:13 ; Admin Dose 20 MG; Start 11/10/16 at 21:00 Clopidogrel Bisulfate (plaVIX) 75 mg DAILY PO Last administered on 11/11/16 08: 15; Admin Dose 75 MG; Start 11/11/16 at 09:00 Docusate Sodium (Colace) 100 mg DAILY PO Last administered on 11/11/16 08:16; Admin Dose 100 MG; Start 11/10/16 at 20:30 Enalapril Maleate (Vasotec) 20 mg DAILY PO Last administered on 11/10/16 22:37 ; Admin Dose 20 MG; Start 11/10/16 at 20:30 Febuxostat (Uloric) 80 mg DAILY PO Last administered on 11/11/16 08:27; Admin Dose 80 MG; Start 11/11/16 at 09:00 Ferrous Sulfate (Ferrous Sulfate (Ec)) 325 mg BID PO Last administered on 08:16; Admin Dose 325 MG; Start 11/10/16 at 21:00 Furosemide (Lasix) 20 mg DAILY@06 PO Last administered on 11/11/16 05:47; Admin Dose 20 MG; Start 11/11/16 at 06:00 Isosorbide Dinitrate (Isordil) 10 mg BID PO Last administered on 11/10/16 21:13 ; Admin Dose 10 MG; Start 11/10/16 at 21:00 Tamsulosin HCl (Flomax) 0.4 mg HS PO Last administered on 11/10/16 21:12; Admin Dose 0.4 MG; Start 11/10/16 at 21:00 Colchicine (Colchicine) 0.6 mg BID PO Last administered on 11/11/16 08:16; Admin Dose 0.6 MG; Start 11/10/16 at 21:00 Pantoprazole (Protonix Tab) 40 mg DAILY@06 PO Last administered on 11/11/16 05: 46; Admin Dose 40 MG; Start 11/11/16 at 06:00 Lorazepam (Ativan) 0.5 mg Q6H PRN IV AGITATION/ANXIETY Last administered on 11/10 21:12; Admin Dose 0.5 MG; Start 11/10/16 at 21:00 Haloperidol (Haldol) 5 mg Q4 PRN IM AGITATION/ANXIETY Last administered on t 22:38; Admin Dose 5 MG; Start 11/10/16 at 22:30 Carvedilol (Coreg) 12.5 mg BID PO ; Start 11/11/16 at 21:00 JAYMIE KING Nov 11, 2016 12:10
--- NOTE | 2016-11-11 14:54 | CONS ---
Date/Time of Note Date/Time of Note DATE: 11/11/16 TIME: 14:23 Assessment/Plan Assessment/Plan Chief Complaint/Hosp Course Chest pain and palpitations Problems: Additional Assessment/Plan Chest pain from atrial flutter and fib without rate control Ischemic cardiomyopathy Diabetes mellitus Acute renal failure vs. acute on chronic Anemia to be sorted out but certainly can be associated with renal insufficiency -doubt myeloma History of cva with right sided weakness and decrease in memory History of coronary bypass surgery History of bph Recommend: follow up renal function renal ultrasound anemia workup per Hospitalists Cards follow up of flutter, ischemic heart disease continue gout prevention but reduce colchine to once per day to avoid mitochondrial myopathy Consultation Date/Type/Reason Admit Date/Time Nov 10, 2016 at 03:07 Type of Consultation: Renal Reason for Consultation Follow up renal insufficiency Hx of Present Illness 71 male admiitted for palpitations, weakness and dizziness and found to be in atrial flutter, uncontrolled. Seen by cards and echo with marked lv enlargement , no pulmonary hypertension, moderate mr, and 20 percent ef with hypokinetic segments. He has a history of cad and bypass and history is compromised by apparent dementia with also prior history of cva. Patient apparently lives with and son. Patient doesn't have any recollection of kidney issues and unclear what urologic complaints really are. His mouth at present is very dry and also hard to communicate. His initial creatinine of 2.29 has improved since admission to 2.0 presumably with rate control and the use of coreg. His urine analysis had 2+protein and a negative sediment. I and O to soon to stitchdowns toe former. At present denied sob, chest pain, palpitations and apparently family is bringing in med list. Spoke with oldest daughter and and patient normally sees Dr. Mcleod in Cards consultation and saw him about one month ago. Apparently some meds discontinued. Patient actually came in because over the last two weeks he has had brief but multiple bouts of chest pain. No sob however. He apparenlty also has a history of prostatism and is on meds for this. Last, apparently had normal kidney function in the past but was told that he was anemic and he was placed on iron. said he does not want heroic measures. 14 point ros negative but for above. Psychological: no complaints Past Medical History Medical History: coronary artery disease, diabetes Past Surgical History Past Surgical Hx: coronary bypass surgery Family History Significant Family History: other (not reliable) Social History Smoking Status: Current every day smoker Drug Use: none Exam/Review of Systems Vital Signs Vitals Vital Signs Date Time Temp Pulse Resp B/P Pulse Ox O2 Delivery O2 Flow Rate FiO2 11/11/16 12:29 77 11/11/16 11:26 98.0 18 104/58 95 11/11/16 04:00 Mechanical Ventilator Intake and Output 11/10/16 11/10/16 11/11/16 15:00 23:00 07:00 Intake Total 650 ml 300 ml Output Total 550 ml Balance 100 ml 300 ml Exam Constitutional: alert, other (not oriented) Psych: anxiety, confusion ENMT: other (dry mouth and hoarse) Neck: supple Respiratory: clear to auscultation Cardiovascular: irregular rhythm, other (no s3 and no edema) Neurological: INBOUND CUSTOMER SERVICE AGENT II-XII intact Lymph: nl lymph nodes Results Result Diagram: 11/11/16 0912 11/11/16 0912 Results 24 hrs Laboratory Tests Test 11/10/16 18:55 11/11/16 09:12 Troponin I 0.098 Anion Gap 17 H Basophils # 0.0 Basophils % 0.1 Blood Morphology Comment Blood Urea Nitrogen 46 H Calcium Level 9.0 Carbon Dioxide Level 20 L Chloride Level 108 Creatinine 2.03 H Eosinophils # 0.1 Eosinophils % 1.9 Glucose Level 144 Hematocrit 27.0 L Hemoglobin 8.8 L Lymphocytes # 1.6 Lymphocytes % 24.1 Magnesium Level 2.1 Mean Corpuscular Hemoglobin 25.9 L Mean Corpuscular Hemoglobin Concent 32.5 Mean Corpuscular Volume 79.6 L Mean Platelet Volume 10.1 Monocytes # 0.3 Monocytes % 4.6 Neutrophils # 4.6 Neutrophils % 69.3 Nucleated Red Blood Cells # 0.0 Nucleated Red Blood Cells % 0.0 Phosphorus Level 3.6 Platelet Count 269 Potassium Level 5.0 Red Blood Count 3.39 L Red Cell Distribution Width 17.8 H Sodium Level 140 White Blood Count 6.6 # Medications Medications Current Medications Morphine Sulfate (morphine) 2 mg Q2H PRN IV PAIN; Start 11/10/16 at 05:30 Ondansetron HCl (Zofran Inj) 4 mg Q6H PRN IV NAUSEA AND/OR VOMITING; Start 11/10 at 08:00 Acetaminophen (Tylenol Tab) 650 mg Q6H PRN PO PAIN LEVEL 1-3 OR FEVER; Start at 08:00 Acetaminophen/ Hydrocodone Bitart ([place] (5/325)) 1 tab Q6H PRN PO MODERATE PAIN LEVEL 4-6; Start 11/10/16 at 08:00 Morphine Sulfate (morphine) 2 mg Q4H PRN IV SEVERE PAIN LEVEL 7-10; Start at 08:00 Docusate Sodium (Colace) 100 mg Q12H PRN PO CONSTIPATION; Start 11/10/16 at 08: 00 Enoxaparin Sodium (Lovenox) 30 mg DAILY SC Last administered on 11/11/16 08:19 ; Admin Dose 30 MG; Start 11/10/16 at 09:00 Nitroglycerin (Nitroglycerin (Sl Tab) 0.4 Mg) 1 tab Q5M PRN SL CHEST PAIN; Start 11/10/16 at 08:00 Aspirin (Halfprin) 81 mg DAILY PO Last administered on 11/11/16 08:16; Admin Dose 81 MG; Start 11/10/16 at 20:30 Atorvastatin Calcium (Lipitor) 20 mg QHS PO Last administered on 11/10/16 21:13 ; Admin Dose 20 MG; Start 11/10/16 at 21:00 Clopidogrel Bisulfate (plaVIX) 75 mg DAILY PO Last administered on 11/11/16 08: 15; Admin Dose 75 MG; Start 11/11/16 at 09:00 Docusate Sodium (Colace) 100 mg DAILY PO Last administered on 11/11/16 08:16; Admin Dose 100 MG; Start 11/10/16 at 20:30 Enalapril Maleate (Vasotec) 20 mg DAILY PO Last administered on 11/10/16 22:37 ; Admin Dose 20 MG; Start 11/10/16 at 20:30 Febuxostat (Uloric) 80 mg DAILY PO Last administered on 11/11/16 08:27; Admin Dose 80 MG; Start 11/11/16 at 09:00 Ferrous Sulfate (Ferrous Sulfate (Ec)) 325 mg BID PO Last administered on 08:16; Admin Dose 325 MG; Start 11/10/16 at 21:00 Furosemide (Lasix) 20 mg DAILY@06 PO Last administered on 11/11/16 05:47; Admin Dose 20 MG; Start 11/11/16 at 06:00 Isosorbide Dinitrate (Isordil) 10 mg BID PO Last administered on 11/10/16 21:13 ; Admin Dose 10 MG; Start 11/10/16 at 21:00 Tamsulosin HCl (Flomax) 0.4 mg HS PO Last administered on 11/10/16 21:12; Admin Dose 0.4 MG; Start 11/10/16 at 21:00 Colchicine (Colchicine) 0.6 mg BID PO Last administered on 11/11/16 08:16; Admin Dose 0.6 MG; Start 11/10/16 at 21:00 Pantoprazole (Protonix Tab) 40 mg DAILY@06 PO Last administered on 11/11/16 05: 46; Admin Dose 40 MG; Start 11/11/16 at 06:00 Lorazepam (Ativan) 0.5 mg Q6H PRN IV AGITATION/ANXIETY Last administered on 11/10 21:12; Admin Dose 0.5 MG; Start 11/10/16 at 21:00 Haloperidol (Haldol) 5 mg Q4 PRN IM AGITATION/ANXIETY Last administered on 22:38; Admin Dose 5 MG; Start 11/10/16 at 22:30 Carvedilol (Coreg) 12.5 mg BID PO ; Start 11/11/16 at 21:00 AROLDO ROSA MD Nov 11, 2016 14:33
--- NOTE | 2016-11-11 17:52 | RADRPT ---
PROCEDURE: Retroperitoneal US. CLINICAL INDICATION: Renal insufficiency TECHNIQUE: Multiple sonographic images of the kidneys and retroperitoneum were obtained. The imag es were reviewed on a PACS workstation. COMPARISON: No prior studies are available for comparison. FINDINGS: The right kidney measures 11 cm. The left kidney measures 10.0 cm. There are multiple cysts in the right kidney, the largest measuring 2.9 cm with a single septation. There is a 1.3 cm simple cyst in the left kidney. There is increased echogenicity of the kidneys. There is no evidence of hydronephrosis. There is a large hypoechoic mass superior medial to the left kidney measuring 9.9 x 6.5 cm. The urinary bladder is partially visualized and appears normal.. IMPRESSION: Large soft tissue mass superior medial to the left kidney, suspicious for a possible large left adre nal mass. Further evaluation with a CT of the abdomen with contrast is recommended. Alternatively, a MRI of the abdomen can be obtained. Echogenic kidneys, consistent with medical renal disease. No evidence of hydronephrosis. RPTAT: AA .Jamie Trujillo MD, MD Date Time Electronically viewed and signed by .Jamie Trujillo MD, on 11/11/2016 17:51 .S/
[2016-11-11] MEDS ORDERED: POLYETHYLENE GLYCOL 17 GM PACKET GTB PRN (18:00)
[2016-11-11] MEDS: LORAZEPAM 2 MG INJ IV PRN (19:53)
[2016-11-11] MEDS: ATORVASTATIN 40 MG TAB PO SCH (20:08)
[2016-11-11] MEDS: TAMSULOSIN (SR) 0.4 MG CAP PO SCH (20:08)
[2016-11-12] VITALS (13 sets, daily range): BP systolic 117–138; BP diastolic 59–75; PULSE 90–99; RESP 16–20
[2016-11-12] MEDS: FUROSEMIDE 20 MG TAB PO SCH ×2 (05:40→06:00)
[2016-11-12] MEDS: PANTOPRAZOLE (EC) 40 MG TAB PO SCH ×2 (05:40→06:00)
--- NOTE | 2016-11-12 08:21 | CONS ---
Date/Time of Note Date/Time of Note DATE: 11/12/16 TIME: 08:17 Assessment/Plan Assessment/Plan Additional Assessment/Plan 1. ARF improving as of yesterday, todays labs are pending, will stop GORDY and diuretic as presently chf not present and observe, will check post void bladder utlz 2. Suprarenal mass, I rev with radiology, to get mri of abd without contrast 3. Anemia, stool ob ordered, iron studies, procrit ordered. 4. SVT has resolved. Consultation Date/Type/Reason Admit Date/Time Nov 10, 2016 at 03:07 Initial Consult Date 11/10/16 Type of Consultation: Renal Referring Provider: IRIS MCCOLLUM Detailed Summary Respiratory: No cough Cardiovascular: No chest pain, No orthopenea Gastrointestinal: no complaints Genitourinary: no complaints Exam/Review of Systems Vital Signs Vitals Vital Signs Date Time Temp Pulse Resp B/P Pulse Ox O2 Delivery O2 Flow Rate FiO2 11/12/16 07:58 98.3 89 18 117/61 100 11/11/16 20:00 Mechanical Ventilator Intake and Output 11/11/16 11/11/16 11/12/16 15:00 23:00 07:00 Intake Total 850 ml 400 ml Balance 850 ml 400 ml Exam Neck: No jvd Respiratory: clear to auscultation Cardiovascular: regular rate and rhythm Gastrointestinal: soft Extremities: No edema Results Result Diagram: 11/11/16 0912 11/11/16 0912 Results 24 hrs Laboratory Tests Test 11/11/16 09:12 Anion Gap 17 H Basophils # 0.0 Basophils % 0.1 Blood Morphology Comment Blood Urea Nitrogen 46 H Calcium Level 9.0 Carbon Dioxide Level 20 L Chloride Level 108 Creatinine 2.03 H Eosinophils # 0.1 Eosinophils % 1.9 Glucose Level 144 Hematocrit 27.0 L Hemoglobin 8.8 L Lymphocytes # 1.6 Lymphocytes % 24.1 Magnesium Level 2.1 Mean Corpuscular Hemoglobin 25.9 L Mean Corpuscular Hemoglobin Concent 32.5 Mean Corpuscular Volume 79.6 L Mean Platelet Volume 10.1 Monocytes # 0.3 Monocytes % 4.6 Neutrophils # 4.6 Neutrophils % 69.3 Nucleated Red Blood Cells # 0.0 Nucleated Red Blood Cells % 0.0 Phosphorus Level 3.6 Platelet Count 269 Potassium Level 5.0 Red Blood Count 3.39 L Red Cell Distribution Width 17.8 H Sodium Level 140 Vitamin B12 Level 569 White Blood Count 6.6 # Medications Medications Current Medications Morphine Sulfate (morphine) 2 mg Q2H PRN IV PAIN; Start 11/10/16 at 05:30 Ondansetron HCl (Zofran Inj) 4 mg Q6H PRN IV NAUSEA AND/OR VOMITING; Start 11/10 at 08:00 Acetaminophen (Tylenol Tab) 650 mg Q6H PRN PO PAIN LEVEL 1-3 OR FEVER; Start at 08:00 Acetaminophen/ Hydrocodone Bitart ([place] (5/325)) 1 tab Q6H PRN PO MODERATE PAIN LEVEL 4-6; Start 11/10/16 at 08:00 Morphine Sulfate (morphine) 2 mg Q4H PRN IV SEVERE PAIN LEVEL 7-10; Start at 08:00 Docusate Sodium (Colace) 100 mg Q12H PRN PO CONSTIPATION; Start 11/10/16 at 08: 00 Enoxaparin Sodium (Lovenox) 30 mg DAILY SC Last administered on 11/11/16 08:19 ; Admin Dose 30 MG; Start 11/10/16 at 09:00 Nitroglycerin (Nitroglycerin (Sl Tab) 0.4 Mg) 1 tab Q5M PRN SL CHEST PAIN; Start 11/10/16 at 08:00 Aspirin (Halfprin) 81 mg DAILY PO Last administered on 11/11/16 08:16; Admin Dose 81 MG; Start 11/10/16 at 20:30 Atorvastatin Calcium (Lipitor) 20 mg QHS PO Last administered on 11/11/16 20:08 ; Admin Dose 20 MG; Start 11/10/16 at 21:00 Clopidogrel Bisulfate (plaVIX) 75 mg DAILY PO Last administered on 11/11/16 08: 15; Admin Dose 75 MG; Start 11/11/16 at 09:00 Docusate Sodium (Colace) 100 mg DAILY PO Last administered on 11/11/16 08:16; Admin Dose 100 MG; Start 11/10/16 at 20:30 Febuxostat (Uloric) 80 mg DAILY PO Last administered on 11/11/16 08:27; Admin Dose 80 MG; Start 11/11/16 at 09:00 Ferrous Sulfate (Ferrous Sulfate (Ec)) 325 mg BID PO Last administered on 20:08; Admin Dose 325 MG; Start 11/10/16 at 21:00 Isosorbide Dinitrate (Isordil) 10 mg BID PO Last administered on 11/11/16 20:08 ; Admin Dose 10 MG; Start 11/10/16 at 21:00 Tamsulosin HCl (Flomax) 0.4 mg HS PO Last administered on 11/11/16 20:08; Admin Dose 0.4 MG; Start 11/10/16 at 21:00 Colchicine (Colchicine) 0.6 mg BID PO Last administered on 11/11/16 20:07; Admin Dose 0.6 MG; Start 11/10/16 at 21:00 Pantoprazole (Protonix Tab) 40 mg DAILY@06 PO Last administered on 11/11/16 05: 46; Admin Dose 40 MG; Start 11/11/16 at 06:00 Lorazepam (Ativan) 0.5 mg Q6H PRN IV AGITATION/ANXIETY Last administered on 11/11 19:53; Admin Dose 0.5 MG; Start 11/10/16 at 21:00 Haloperidol (Haldol) 5 mg Q4 PRN IM AGITATION/ANXIETY Last administered on 22:38; Admin Dose 5 MG; Start 11/10/16 at 22:30 Carvedilol (Coreg) 12.5 mg BID PO Last administered on 11/11/16 20:08; Admin Dose 12.5 MG; Start 11/11/16 at 21:00 Polyethylene Glycol (Miralax) 17 gm DAILY PRN GTB CONSTIPATION Last administered on 11/11/16 17:59; Admin Dose 17 GM; Start 11/11/16 at 18:00 XENA CALHOUN MD Nov 12, 2016 08:21
[2016-11-12] MEDS: ASPIRIN (EC) 81 MG TAB PO SCH (09:00)
[2016-11-12] MEDS: CLOPIDOGREL 75 MG TAB PO SCH (09:00)
[2016-11-12] MEDS: FERROUS SULFATE (EC) 325 MG TAB PO SCH ×2 (09:00→21:03)
[2016-11-12] MEDS: DOCUSATE SODIUM 100 MG CAP PO SCH (09:00)
[2016-11-12] MEDS: ISOSORBIDE DINITRATE 10 MG TAB PO SCH ×2 (09:00→21:04)
[2016-11-12] MEDS: COLCHICINE 0.6 MG TAB PO SCH ×2 (09:00→21:03)
[2016-11-12] MEDS: ENOXAPARIN 30 MG/0.3 ML SYG SC SCH (09:00)
[2016-11-12] MEDS: FEBUXOSTAT 40 MG TABLET PO SCH (09:00)
[2016-11-12 10:46] LABS: IRON 23 ug/dl (35-150)
[2016-11-12 10:47] LABS: POTASSIUM 5.2 mmol/L (3.5-5.1)
[2016-11-12 10:50] LABS: CREATININE 1.96 mg/dl (0.61-1.24)
[2016-11-12 10:51] LABS: CALCIUM 8.8 mg/dl (8.4-10.2)
[2016-11-12 10:55] LABS: TOTAL IRON BINDING CAPACITY 178 ug/dl (241-421)
--- NOTE | 2016-11-12 11:07 | PN ---
Date/Time of Note Date/Time of Note DATE: 11/12/16 TIME: 11:04 Assessment/Plan VTE Prophylaxis VTE Prophylaxis Intervention: LMWH Lines/Catheters IV [facility] Urinary Cath still in place: No Assessment/Plan Chief Complaint/Hosp Course Assessment and plan 1. Suspect Paroxysmal atrial flutter with RVR. Continue on beta jahaira. Anticoagulation per fire safety inspector. Continue telemetry monitoring. 2. Chest pain secondary to #1. Improved at present. We'll monitor for now 3. Demand ischemia likely secondary to #1. Continue on antiplatelet therapy. 4. History of CAD. Continue antiplatelet therapy and statin medication. Continue on beta jahaira. off marcin inhibitor due to renal dysfunction 5. Iron deficiency anemia. Continue iron supplement 6. History of diabetes. Continue on metformin 7. Dyslipidemia. Patient to be resumed on statin medication 8. Acute on likely chronic any disease. Route Delivery Supervisor following. Monitor renal panel 9. Suspect adrenal mass. Patient with renal ultrasound showing: Large soft tissue mass superior medial to the left kidney, suspicious for a possible large left adrenal mass Plan for MRI abdomen. Discussed with family Disposition and plan: Anticoagulation per fire safety inspector. Continue on beta jahaira. plan for abd mri for suspect adrenal mass Discussed plan of care with Dr. Powell Problems: Subjective 24 Hr Interval Summary Free Text/Dictation denies any chest pain. no s/s of distress Exam/Review of Systems Vital Signs Vitals Vital Signs Date Time Temp Pulse Resp B/P Pulse Ox O2 Delivery O2 Flow Rate FiO2 11/12/16 08:30 96 11/12/16 07:58 98.3 18 117/61 100 11/11/16 20:00 Mechanical Ventilator Intake and Output 11/11/16 11/11/16 11/12/16 15:00 23:00 07:00 Intake Total 850 ml 400 ml Balance 850 ml 400 ml Exam General: No acute signs or symptoms of distress Eyes: pupils equal round, Anicteric sclera Neck: Supple nontender, no JVD Cardiac: Irregular rate Pulmonary: No coarse rhonchi or breathing auscultated GI: Abdomen soft nontender nondistended, bowel sounds active Extremities: No edema bilateral lower extremities. Noted with slightly contracted left upper extremity Skin: Clean dry and intact Neurologic: more alert today, alert to person, place, situation Results Result Diagram: 11/11/16 0912 11/12/16 0959 Results 24 hrs Laboratory Tests Test 11/12/16 09:59 Anion Gap 16 Blood Urea Nitrogen 42 H Calcium Level 8.8 Carbon Dioxide Level 22 Chloride Level 107 Creatinine 1.96 H Glucose Level 121 Iron Level 23 L Percent Iron Saturation 13 L Potassium Level 5.2 H Sodium Level 140 Total Iron Binding Capacity 178 L Medications Medications Current Medications Morphine Sulfate (morphine) 2 mg Q2H PRN IV PAIN; Start 11/10/16 at 05:30 Ondansetron HCl (Zofran Inj) 4 mg Q6H PRN IV NAUSEA AND/OR VOMITING; Start 11/10 at 08:00 Acetaminophen (Tylenol Tab) 650 mg Q6H PRN PO PAIN LEVEL 1-3 OR FEVER; Start at 08:00 Acetaminophen/ Hydrocodone Bitart ([place] (5/325)) 1 tab Q6H PRN PO MODERATE PAIN LEVEL 4-6; Start 11/10/16 at 08:00 Morphine Sulfate (morphine) 2 mg Q4H PRN IV SEVERE PAIN LEVEL 7-10; Start at 08:00 Docusate Sodium (Colace) 100 mg Q12H PRN PO CONSTIPATION; Start 11/10/16 at 08: 00 Enoxaparin Sodium (Lovenox) 30 mg DAILY SC Last administered on 11/11/16 08:19 ; Admin Dose 30 MG; Start 11/10/16 at 09:00 Nitroglycerin (Nitroglycerin (Sl Tab) 0.4 Mg) 1 tab Q5M PRN SL CHEST PAIN; Start 11/10/16 at 08:00 Aspirin (Halfprin) 81 mg DAILY PO Last administered on 11/11/16 08:16; Admin Dose 81 MG; Start 11/10/16 at 20:30 Atorvastatin Calcium (Lipitor) 20 mg QHS PO Last administered on 11/11/16 20:08 ; Admin Dose 20 MG; Start 11/10/16 at 21:00 Clopidogrel Bisulfate (plaVIX) 75 mg DAILY PO Last administered on 11/11/16 08: 15; Admin Dose 75 MG; Start 11/11/16 at 09:00 Docusate Sodium (Colace) 100 mg DAILY PO Last administered on 11/11/16 08:16; Admin Dose 100 MG; Start 11/10/16 at 20:30 Febuxostat (Uloric) 80 mg DAILY PO Last administered on 11/11/16 08:27; Admin Dose 80 MG; Start 11/11/16 at 09:00 Ferrous Sulfate (Ferrous Sulfate (Ec)) 325 mg BID PO Last administered on 20:08; Admin Dose 325 MG; Start 11/10/16 at 21:00 Isosorbide Dinitrate (Isordil) 10 mg BID PO Last administered on 11/11/16 20:08 ; Admin Dose 10 MG; Start 11/10/16 at 21:00 Tamsulosin HCl (Flomax) 0.4 mg HS PO Last administered on 11/11/16 20:08; Admin Dose 0.4 MG; Start 11/10/16 at 21:00 Colchicine (Colchicine) 0.6 mg BID PO Last administered on 11/11/16 20:07; Admin Dose 0.6 MG; Start 11/10/16 at 21:00 Pantoprazole (Protonix Tab) 40 mg DAILY@06 PO Last administered on 11/11/16 05: 46; Admin Dose 40 MG; Start 11/11/16 at 06:00 Lorazepam (Ativan) 0.5 mg Q6H PRN IV AGITATION/ANXIETY Last administered on 11/11 19:53; Admin Dose 0.5 MG; Start 11/10/16 at 21:00 Haloperidol (Haldol) 5 mg Q4 PRN IM AGITATION/ANXIETY Last administered on 22:38; Admin Dose 5 MG; Start 11/10/16 at 22:30 Carvedilol (Coreg) 12.5 mg BID PO Last administered on 11/11/16 20:08; Admin Dose 12.5 MG; Start 11/11/16 at 21:00 Polyethylene Glycol (Miralax) 17 gm DAILY PRN GTB CONSTIPATION Last administered on 11/11/16 17:59; Admin Dose 17 GM; Start 11/11/16 at 18:00 Epoetin Frank (Epogen (Non Esrd/Non Oncology)) 10,000 units MoWeFr@17 SC ; Start 11/12/16 at 17:00 JAYMIE KING Nov 12, 2016 11:07
[2016-11-12] MEDS ORDERED: DEXTROSE 50% 50 ML SYRINGE IV PRN ×2 (11:30)
[2016-11-12] MEDS ORDERED: GLUCOSE GEL 15 GRAM TUBE PO PRN ×2 (11:30)
[2016-11-12] MEDS ORDERED: GLUCAGON 1 MG INJ IM PRN (11:30)
[2016-11-12] MEDS ORDERED: GLUCOSE GEL 15 GRAM TUBE BUCCAL PRN (11:30)
[2016-11-12] MEDS: INSULIN ASPART [NOVOLOG] 3 ML PEN SC SCH ×3 (11:50→21:18)
[2016-11-12] MEDS: COLLAGENASE 30 GM TUBE TOP SCH (13:30)
[2016-11-12] MEDS: EPOETIN 10000 UNITS/ML (NON ESRD/NON ONCOLOGY) SC SCH (17:32)
--- NOTE | 2016-11-12 18:50 | CONS ---
Date/Time of Note Date/Time of Note DATE: 11/12/16 TIME: 18:45 Assessment/Plan Assessment/Plan Chief Complaint/Hosp Course Paroxysmal atrial flutter with rapid ventricular rates: Now back in sinus rhythm. CHADSVASC is at least 6, will need chronic anticoagulation. Cardiomyopathy: LVEF 20%. Likely chronic. 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 Sinus rhythm on telemetry. Detailed Summary Additional Comments 14 point review of systems without changes. Exam/Review of Systems Vital Signs Vitals Vital Signs Date Time Temp Pulse Resp B/P Pulse Ox O2 Delivery O2 Flow Rate FiO2 11/12/16 16:27 92 11/12/16 16:04 98.7 18 138/75 100 11/11/16 20:00 Mechanical Ventilator Intake and Output 11/11/16 11/11/16 11/12/16 15:00 23:00 07:00 Intake Total 850 ml 400 ml Balance 850 ml 400 ml Exam Constitutional: alert Psych: no complaints Head: atraumatic, normocephalic Neck: jvd (6cm) Respiratory: clear to auscultation Cardiovascular: regular rate and rhythm, systolic murmur (2/6), No edema Gastrointestinal: soft Neurological: No nl mental status, No nl speech Results Result Diagram: 11/11/16 0912 11/12/16 0959 Results 24 hrs Laboratory Tests Test 11/12/16 09:59 11/12/16 12:12 11/12/16 17:02 Anion Gap 16 Blood Urea Nitrogen 42 H Calcium Level 8.8 Carbon Dioxide Level 22 Chloride Level 107 Creatinine 1.96 H Glucose Level 121 Iron Level 23 L Percent Iron Saturation 13 L Potassium Level 5.2 H Sodium Level 140 Total Iron Binding Capacity 178 L Bedside Glucose 142 128 Medications Medications Current Medications Morphine Sulfate (morphine) 2 mg Q2H PRN IV PAIN; Start 11/10/16 at 05:30 Ondansetron HCl (Zofran Inj) 4 mg Q6H PRN IV NAUSEA AND/OR VOMITING; Start 11/10 at 08:00 Acetaminophen (Tylenol Tab) 650 mg Q6H PRN PO PAIN LEVEL 1-3 OR FEVER; Start at 08:00 Acetaminophen/ Hydrocodone Bitart ([place] (5/325)) 1 tab Q6H PRN PO MODERATE PAIN LEVEL 4-6; Start 11/10/16 at 08:00 Morphine Sulfate (morphine) 2 mg Q4H PRN IV SEVERE PAIN LEVEL 7-10; Start at 08:00 Docusate Sodium (Colace) 100 mg Q12H PRN PO CONSTIPATION; Start 11/10/16 at 08: 00 Enoxaparin Sodium (Lovenox) 30 mg DAILY SC Last administered on 11/11/16 08:19 ; Admin Dose 30 MG; Start 11/10/16 at 09:00 Nitroglycerin (Nitroglycerin (Sl Tab) 0.4 Mg) 1 tab Q5M PRN SL CHEST PAIN; Start 11/10/16 at 08:00 Aspirin (Halfprin) 81 mg DAILY PO Last administered on 11/11/16 08:16; Admin Dose 81 MG; Start 11/10/16 at 20:30 Atorvastatin Calcium (Lipitor) 20 mg QHS PO Last administered on 11/11/16 20:08 ; Admin Dose 20 MG; Start 11/10/16 at 21:00 Clopidogrel Bisulfate (plaVIX) 75 mg DAILY PO Last administered on 11/11/16 08: 15; Admin Dose 75 MG; Start 11/11/16 at 09:00 Docusate Sodium (Colace) 100 mg DAILY PO Last administered on 11/11/16 08:16; Admin Dose 100 MG; Start 11/10/16 at 20:30 Febuxostat (Uloric) 80 mg DAILY PO Last administered on 11/11/16 08:27; Admin Dose 80 MG; Start 11/11/16 at 09:00 Ferrous Sulfate (Ferrous Sulfate (Ec)) 325 mg BID PO Last administered on 20:08; Admin Dose 325 MG; Start 11/10/16 at 21:00 Isosorbide Dinitrate (Isordil) 10 mg BID PO Last administered on 11/11/16 20:08 ; Admin Dose 10 MG; Start 11/10/16 at 21:00 Tamsulosin HCl (Flomax) 0.4 mg HS PO Last administered on 11/11/16 20:08; Admin Dose 0.4 MG; Start 11/10/16 at 21:00 Colchicine (Colchicine) 0.6 mg BID PO Last administered on 11/11/16 20:07; Admin Dose 0.6 MG; Start 11/10/16 at 21:00 Pantoprazole (Protonix Tab) 40 mg DAILY@06 PO Last administered on 11/11/16 05: 46; Admin Dose 40 MG; Start 11/11/16 at 06:00 Lorazepam (Ativan) 0.5 mg Q6H PRN IV AGITATION/ANXIETY Last administered on 11/11 19:53; Admin Dose 0.5 MG; Start 11/10/16 at 21:00 Haloperidol (Haldol) 5 mg Q4 PRN IM AGITATION/ANXIETY Last administered on 22:38; Admin Dose 5 MG; Start 11/10/16 at 22:30 Carvedilol (Coreg) 12.5 mg BID PO Last administered on 11/11/16 20:08; Admin Dose 12.5 MG; Start 11/11/16 at 21:00 Polyethylene Glycol (Miralax) 17 gm DAILY PRN GTB CONSTIPATION Last administered on 11/11/16 17:59; Admin Dose 17 GM; Start 11/11/16 at 18:00 Epoetin Frank (Epogen (Non Esrd/Non Oncology)) 10,000 units MoWeFr@17 SC Last administered on 11/12/16 17:32; Admin Dose 10,000 UNITS; Start 11/12/16 at 17:00 Diagnostic Test (Pha) (Accucheck) 1 ea 02 XX ; Start 11/13/16 at 02:00 Miscellaneous Information 1 ea NOTE XX ; Start 11/12/16 at 11:30 Glucose (Glutose) 15 gm Q15M PRN PO DECREASED GLUCOSE; Start 11/12/16 at 11:30 Glucose (Glutose) 22.5 gm Q15M PRN PO DECREASED GLUCOSE; Start 11/12/16 at 11:30 Dextrose (D50w Syringe) 25 ml Q15M PRN IV DECREASED GLUCOSE; Start 11/12/16 at 11:30 Dextrose (D50w Syringe) 50 ml Q15M PRN IV DECREASED GLUCOSE; Start 11/12/16 at 11:30 Glucagon (Glucagen) 1 mg Q15M PRN IM DECREASED GLUCOSE; Start 11/12/16 at 11:30 Glucose (Glutose) 15 gm Q15M PRN BUCCAL DECREASED GLUCOSE; Start 11/12/16 at 11: 30 Collagenase (Santyl) 1 applic DAILY TOP ; Start 11/12/16 at 13:30 ARLENE FUNEZ MD Nov 12, 2016 18:50
[2016-11-12] MEDS: TAMSULOSIN (SR) 0.4 MG CAP PO SCH (21:02)
[2016-11-12] MEDS: ATORVASTATIN 40 MG TAB PO SCH (21:02)
[2016-11-13] VITALS (13 sets, daily range): BP systolic 116–149; BP diastolic 58–80; PULSE 89–108; RESP 18–20
[2016-11-13] MEDS: ACCUCHECK XX SCH (02:00)
[2016-11-13] MEDS: PANTOPRAZOLE (EC) 40 MG TAB PO SCH (06:16)
[2016-11-13 06:26] LABS: PROTEIN, TOTAL 5.8 g/dL (6.1-8.1)
[2016-11-13 07:16] LABS: POTASSIUM 5.1 mmol/L (3.5-5.1)
[2016-11-13 07:17] LABS: IRON 20 ug/dl (35-150)
[2016-11-13 07:18] LABS: CREATININE 1.83 mg/dl (0.61-1.24)
[2016-11-13 07:21] LABS: BASOPHILS % 0.4 % (0.0-2.0); EOSINOPHILS # 0.1 10^3/ul (0.0-0.5); EOSINOPHILS % 1.9 % (0.0-7.0); HEMATOCRIT 29.6 % (42.0-52.0); HEMOGLOBIN 9.6 g/dl (14.0-18.0); LYMPHOCYTES # 1.3 10^3/ul (0.8-2.9); LYMPHOCYTES % 18.8 % (15.0-51.0); MEAN CORPUSCULAR HGB CONC 32.6 g/dl (32.0-37.0); MEAN CORPUSCULAR VOLUME 79.8 fl (82.0-101.0); MEAN PLATELET VOLUME 11.2 fl (7.4-10.4); MONOCYTE # 0.4 10^3/ul (0.3-0.9); MONOCYTES % 5.2 % (0.0-11.0); NEUTROPHIL # 5.1 10^3/ul (1.6-7.5); NEUTROPHILS % 73.7 % (39.0-77.0); PLATELET COUNT 267 10^3/UL (140-440); RED BLOOD COUNT 3.71 10^6/ul (4.70-6.10); RED CELL DISTRIBUTION WIDTH 18.1 % (11.5-14.5); UNCORRECTED WBC 6.9 10^3/ul (4.8-10.8); WHITE BLOOD COUNT 6.9 10^3/ul (4.8-10.8)
[2016-11-13 07:22] LABS: CONDITION 1; LH ANALYZER COMMENTS 1; MAGNESIUM 1.9 mg/dl (1.7-2.5); SUSPECT 1
[2016-11-13 07:26] LABS: TOTAL IRON BINDING CAPACITY 185 ug/dl (241-421)
[2016-11-13] MEDS: INSULIN ASPART [NOVOLOG] 3 ML PEN SC SCH ×4 (07:55→21:24)
--- NOTE | 2016-11-13 08:36 | CONS ---
Date/Time of Note Date/Time of Note DATE: 11/13/16 TIME: 08:34 Assessment/Plan Assessment/Plan Additional Assessment/Plan 1. Renal fx continues to improve, lasix and marcin dc yesterday, no need to resume. 2. Renal mass to be pursued with MRI without mathieu today. 3. SVT resolved 4. Anemia noted, iron def, stool ob pending, IV iron started, will cont epogen. Consultation Date/Type/Reason Admit Date/Time Nov 10, 2016 at 03:07 Initial Consult Date 11/10/16 Type of Consultation: Cardiology Detailed Summary Respiratory: No shortness of breath Cardiovascular: No chest pain Gastrointestinal: no complaints Genitourinary: no complaints Neurologic: other (family reports he became very lethargic after ativan) Exam/Review of Systems Vital Signs Vitals Vital Signs Date Time Temp Pulse Resp B/P Pulse Ox O2 Delivery O2 Flow Rate FiO2 11/13/16 08:22 104 11/13/16 08:10 97.9 18 142/80 97 11/11/16 20:00 Mechanical Ventilator Intake and Output 11/12/16 11/12/16 11/13/16 15:00 23:00 07:00 Intake Total 350 ml 250 ml Balance 350 ml 250 ml Exam Neck: No jvd Respiratory: clear to auscultation Cardiovascular: regular rate and rhythm Gastrointestinal: soft, No hepatomegaly, No splenomegaly Extremities: No edema (and no calf tend) Results Result Diagram: 11/13/16 0605 11/13/16 0605 Results 24 hrs Laboratory Tests Test 11/12/16 09:59 11/12/16 12:12 11/12/16 17:02 11/12/16 21:01 Albumin (PEP) Pending [id number] Pending [id number] Pending Anion Gap 16 Beta Globulins Pending Blood Urea Nitrogen 42 H Calcium Level 8.8 Carbon Dioxide Level 22 Chloride Level 107 Creatinine 1.96 H Gamma Globulins Pending Glucose Level 121 Iron Level 23 L Percent Iron Saturation 13 L Potassium Level 5.2 H Protein Electrophoresis Interpret Pending Sodium Level 140 Total Iron Binding Capacity 178 L Total Protein (PEP) 5.8 L Bedside Glucose 142 128 186 Test 11/13/16 02:11 11/13/16 06:05 11/13/16 08:01 Bedside Glucose 155 141 Anion Gap 18 H Basophils # 0.0 Basophils % 0.4 Blood Morphology Comment Blood Urea Nitrogen 40 H Calcium Level 9.0 Carbon Dioxide Level 21 Chloride Level 106 Creatinine 1.83 H Eosinophils # 0.1 Eosinophils % 1.9 Glucose Level 141 Hematocrit 29.6 L Hemoglobin 9.6 L Iron Level 20 L Lymphocytes # 1.3 Lymphocytes % 18.8 Magnesium Level 1.9 Mean Corpuscular Hemoglobin 26.0 L Mean Corpuscular Hemoglobin Concent 32.6 Mean Corpuscular Volume 79.8 L Mean Platelet Volume 11.2 H Monocytes # 0.4 Monocytes % 5.2 Neutrophils # 5.1 Neutrophils % 73.7 Nucleated Red Blood Cells # 0.0 Nucleated Red Blood Cells % 0.0 Percent Iron Saturation 11 L Phosphorus Level 4.0 Platelet Count 267 Potassium Level 5.1 Red Blood Count 3.71 L Red Cell Distribution Width 18.1 H Sodium Level 140 Total Iron Binding Capacity 185 L White Blood Count 6.9 Medications Medications Current Medications Morphine Sulfate (morphine) 2 mg Q2H PRN IV PAIN; Start 11/10/16 at 05:30 Ondansetron HCl (Zofran Inj) 4 mg Q6H PRN IV NAUSEA AND/OR VOMITING; Start 11/10 at 08:00 Acetaminophen (Tylenol Tab) 650 mg Q6H PRN PO PAIN LEVEL 1-3 OR FEVER; Start at 08:00 Acetaminophen/ Hydrocodone Bitart ([place] (5/325)) 1 tab Q6H PRN PO MODERATE PAIN LEVEL 4-6; Start 11/10/16 at 08:00 Morphine Sulfate (morphine) 2 mg Q4H PRN IV SEVERE PAIN LEVEL 7-10; Start at 08:00 Docusate Sodium (Colace) 100 mg Q12H PRN PO CONSTIPATION; Start 11/10/16 at 08: 00 Enoxaparin Sodium (Lovenox) 30 mg DAILY SC Last administered on 11/11/16 08:19 ; Admin Dose 30 MG; Start 11/10/16 at 09:00 Nitroglycerin (Nitroglycerin (Sl Tab) 0.4 Mg) 1 tab Q5M PRN SL CHEST PAIN; Start 11/10/16 at 08:00 Aspirin (Halfprin) 81 mg DAILY PO Last administered on 11/11/16 08:16; Admin Dose 81 MG; Start 11/10/16 at 20:30 Atorvastatin Calcium (Lipitor) 20 mg QHS PO Last administered on 11/12/16 21:02 ; Admin Dose 20 MG; Start 11/10/16 at 21:00 Clopidogrel Bisulfate (plaVIX) 75 mg DAILY PO Last administered on 11/11/16 08: 15; Admin Dose 75 MG; Start 11/11/16 at 09:00 Docusate Sodium (Colace) 100 mg DAILY PO Last administered on 11/11/16 08:16; Admin Dose 100 MG; Start 11/10/16 at 20:30 Febuxostat (Uloric) 80 mg DAILY PO Last administered on 11/11/16 08:27; Admin Dose 80 MG; Start 11/11/16 at 09:00 Ferrous Sulfate (Ferrous Sulfate (Ec)) 325 mg BID PO Last administered on 21:03; Admin Dose 325 MG; Start 11/10/16 at 21:00 Isosorbide Dinitrate (Isordil) 10 mg BID PO Last administered on 11/12/16 21:04 ; Admin Dose 10 MG; Start 11/10/16 at 21:00 Tamsulosin HCl (Flomax) 0.4 mg HS PO Last administered on 11/12/16 21:02; Admin Dose 0.4 MG; Start 11/10/16 at 21:00 Colchicine (Colchicine) 0.6 mg BID PO Last administered on 11/12/16 21:03; Admin Dose 0.6 MG; Start 11/10/16 at 21:00 Pantoprazole (Protonix Tab) 40 mg DAILY@06 PO Last administered on 11/13/16 06 :16; Admin Dose 40 MG; Start 11/11/16 at 06:00 Lorazepam (Ativan) 0.5 mg Q6H PRN IV AGITATION/ANXIETY Last administered on 11/11 19:53; Admin Dose 0.5 MG; Start 11/10/16 at 21:00 Haloperidol (Haldol) 5 mg Q4 PRN IM AGITATION/ANXIETY Last administered on 22:38; Admin Dose 5 MG; Start 11/10/16 at 22:30 Carvedilol (Coreg) 12.5 mg BID PO Last administered on 11/12/16 21:04; Admin Dose 12.5 MG; Start 11/11/16 at 21:00 Polyethylene Glycol (Miralax) 17 gm DAILY PRN GTB CONSTIPATION Last administered on 11/11/16 17:59; Admin Dose 17 GM; Start 11/11/16 at 18:00 Epoetin Frank (Epogen (Non Esrd/Non Oncology)) 10,000 units MoWeFr@17 SC Last administered on 11/12/16 17:32; Admin Dose 10,000 UNITS; Start 11/12/16 at 17:00 Diagnostic Test (Pha) (Accucheck) 1 ea 02 XX Last administered on 11/13/16 02: 00; Admin Dose 1 EA; Start 11/13/16 at 02:00 Miscellaneous Information 1 ea NOTE XX ; Start 11/12/16 at 11:30 Glucose (Glutose) 15 gm Q15M PRN PO DECREASED GLUCOSE; Start 11/12/16 at 11:30 Glucose (Glutose) 22.5 gm Q15M PRN PO DECREASED GLUCOSE; Start 11/12/16 at 11:30 Dextrose (D50w Syringe) 25 ml Q15M PRN IV DECREASED GLUCOSE; Start 11/12/16 at 11:30 Dextrose (D50w Syringe) 50 ml Q15M PRN IV DECREASED GLUCOSE; Start 11/12/16 at 11:30 Glucagon (Glucagen) 1 mg Q15M PRN IM DECREASED GLUCOSE; Start 11/12/16 at 11:30 Glucose (Glutose) 15 gm Q15M PRN BUCCAL DECREASED GLUCOSE; Start 11/12/16 at 11: 30 Collagenase (Santyl) 1 applic DAILY TOP ; Start 11/12/16 at 13:30 XENA CALHOUN MD Nov 13, 2016 08:36
[2016-11-13] MEDS: FEBUXOSTAT 40 MG TABLET PO SCH ×2 (09:00→17:17)
[2016-11-13] MEDS: CLOPIDOGREL 75 MG TAB PO SCH ×2 (09:00→17:16)
[2016-11-13] MEDS: COLLAGENASE 30 GM TUBE TOP SCH ×2 (09:00→10:49)
[2016-11-13] MEDS: DOCUSATE SODIUM 100 MG CAP PO SCH ×2 (09:00→17:16)
[2016-11-13] MEDS: COLCHICINE 0.6 MG TAB PO SCH ×3 (09:00→20:56)
[2016-11-13] MEDS: FERROUS SULFATE (EC) 325 MG TAB PO SCH ×3 (09:00→20:55)
[2016-11-13] MEDS: ASPIRIN (EC) 81 MG TAB PO SCH ×2 (09:00→17:16)
[2016-11-13] MEDS: ISOSORBIDE DINITRATE 10 MG TAB PO SCH ×3 (09:00→20:56)
[2016-11-13] MEDS: ENOXAPARIN 30 MG/0.3 ML SYG SC SCH (09:14)
[2016-11-13] MEDS ORDERED: BISACODYL 10 MG SUPP PR PRN (10:30)
[2016-11-13] MEDS ORDERED: LACTULOSE 30ML CUP PO PRN (10:30)
[2016-11-13] MEDS: SOD FERRIC GLUC COMPLX 125 MG in SOD CHLORIDE 0.9% 100 ML IVPB SCH (10:32)
[2016-11-13] MEDS: DEXTROSE 5%-LR 1,000 ML IV SCH (11:13)
--- NOTE | 2016-11-13 15:03 | PN ---
Date/Time of Note Date/Time of Note DATE: 11/13/16 TIME: 15:01 Assessment/Plan VTE Prophylaxis VTE Prophylaxis Intervention: SCD's Lines/Catheters IV C[facility]ter Type (from [facility] Saline Lock Urinary Cath still in place: No Assessment/Plan Chief Complaint/Hosp Course Assessment and plan 1. Suspect Paroxysmal atrial flutter with RVR. Continue on beta jahaira. Anticoagulation per farm tractor mechanic. Continue telemetry monitoring. 2. Chest pain secondary to #1. Improved at present. We'll monitor for now 3. Demand ischemia likely secondary to #1. Continue on antiplatelet therapy. 4. History of CAD. Continue antiplatelet therapy and statin medication. Continue on beta jahaira no marcin inhibitor due to renal dysfunction 5. Iron deficiency anemia. Continue iron supplement 6. History of diabetes. Continue on metformin 7. Dyslipidemia. Patient to be resumed on statin medication 8. Acute on likely chronic any disease. Consumer Credit Counselor following. Monitor renal panel 9. Suspect adrenal mass. Patient with renal ultrasound showing: Large soft tissue mass superior medial to the left kidney, suspicious for a possible large left adrenal mass Plan for MRI abdomen. Discussed with family Disposition and plan: Anticoagulation per farm tractor mechanic. Continue on beta jahaira. awaiting for mri abdomen. will follow up Discussed plan of care with Dr. Powell Problems: Subjective 24 Hr Interval Summary Free Text/Dictation Comfortable at this time. No signs or symptoms of distress Exam/Review of Systems Vital Signs Vitals Vital Signs Date Time Temp Pulse Resp B/P Pulse Ox O2 Delivery O2 Flow Rate FiO2 11/13/16 12:36 89 11/13/16 12:05 97.3 18 140/65 100 11/11/16 20:00 Mechanical Ventilator Intake and Output 11/12/16 11/12/16 11/13/16 14:59 22:59 06:59 Intake Total 350 ml 250 ml Balance 350 ml 250 ml Exam General: No acute signs or symptoms of distress Eyes: pupils equal round, Anicteric sclera Neck: Supple nontender, no JVD Cardiac: Irregular rate Pulmonary: No coarse rhonchi or breathing auscultated GI: Abdomen soft nontender nondistended, bowel sounds active Extremities: No edema bilateral lower extremities. Noted with slightly contracted left upper extremity Skin: Clean dry and intact Neurologic: more alert today, alert to person, place, situation Results Result Diagram: 11/13/16 0611/13/16604 Results 24 hrs Laboratory Tests Test 11/12/16 17:02 11/12/16 21:01 11/13/16 02:11 11/13/16 06:05 Bedside Glucose 128 186 155 Anion Gap 18 H Basophils # 0.0 Basophils % 0.4 Blood Morphology Comment Blood Urea Nitrogen 40 H Calcium Level 9.0 Carbon Dioxide Level 21 Chloride Level 106 Creatinine 1.83 H Eosinophils # 0.1 Eosinophils % 1.9 Ferritin 975.0 H Glucose Level 141 Hematocrit 29.6 L Hemoglobin 9.6 L Iron Level 20 L Lymphocytes # 1.3 Lymphocytes % 18.8 Magnesium Level 1.9 Mean Corpuscular Hemoglobin 26.0 L Mean Corpuscular Hemoglobin Concent 32.6 Mean Corpuscular Volume 79.8 L Mean Platelet Volume 11.2 H Monocytes # 0.4 Monocytes % 5.2 Neutrophils # 5.1 Neutrophils % 73.7 Nucleated Red Blood Cells # 0.0 Nucleated Red Blood Cells % 0.0 Percent Iron Saturation 11 L Phosphorus Level 4.0 Platelet Count 267 Potassium Level 5.1 Red Blood Count 3.71 L Red Cell Distribution Width 18.1 H Sodium Level 140 Total Iron Binding Capacity 185 L Vitamin B12 Level 455 White Blood Count 6.9 Test 11/13/16 08:01 11/13/16 11:21 Bedside Glucose 141 132 Medications Medications Current Medications Morphine Sulfate (morphine) 2 mg Q2H PRN IV PAIN; Start 11/10/16 at 05:30 Ondansetron HCl (Zofran Inj) 4 mg Q6H PRN IV NAUSEA AND/OR VOMITING; Start 11/10 at 08:00 Acetaminophen (Tylenol Tab) 650 mg Q6H PRN PO PAIN LEVEL 1-3 OR FEVER; Start at 08:00 Acetaminophen/ Hydrocodone Bitart ([place] (5/325)) 1 tab Q6H PRN PO MODERATE PAIN LEVEL 4-6; Start 11/10/16 at 08:00 Morphine Sulfate (morphine) 2 mg Q4H PRN IV SEVERE PAIN LEVEL 7-10; Start at 08:00 Docusate Sodium (Colace) 100 mg Q12H PRN PO CONSTIPATION; Start 11/10/16 at 08: 00 Enoxaparin Sodium (Lovenox) 30 mg DAILY SC Last administered on 11/13/16t 09:14 ; Admin Dose 30 MG; Start 11/10/16 at 09:00 Nitroglycerin (Nitroglycerin (Sl Tab) 0.4 Mg) 1 tab Q5M PRN SL CHEST PAIN; Start 11/10/16 at 08:00 Aspirin (Halfprin) 81 mg DAILY PO Last administered on 11/11/16 08:16; Admin Dose 81 MG; Start 11/10/16 at 20:30 Atorvastatin Calcium (Lipitor) 20 mg QHS PO Last administered on 11/12/16 21:02 ; Admin Dose 20 MG; Start 11/10/16 at 21:00 Clopidogrel Bisulfate (plaVIX) 75 mg DAILY PO Last administered on 11/11/16 08: 15; Admin Dose 75 MG; Start 11/11/16 at 09:00 Docusate Sodium (Colace) 100 mg DAILY PO Last administered on 11/11/16 08:16; Admin Dose 100 MG; Start 11/10/16 at 20:30 Febuxostat (Uloric) 80 mg DAILY PO Last administered on 11/11/16 08:27; Admin Dose 80 MG; Start 11/11/16 at 09:00 Ferrous Sulfate (Ferrous Sulfate (Ec)) 325 mg BID PO Last administered on 21:03; Admin Dose 325 MG; Start 11/10/16 at 21:00 Isosorbide Dinitrate (Isordil) 10 mg BID PO Last administered on 11/12/16 21:04 ; Admin Dose 10 MG; Start 11/10/16 at 21:00 Tamsulosin HCl (Flomax) 0.4 mg HS PO Last administered on 11/12/16 21:02; Admin Dose 0.4 MG; Start 11/10/16 at 21:00 Colchicine (Colchicine) 0.6 mg BID PO Last administered on 11/12/16 21:03; Admin Dose 0.6 MG; Start 11/10/16 at 21:00 Pantoprazole (Protonix Tab) 40 mg DAILY@06 PO Last administered on 11/13/16 06 :16; Admin Dose 40 MG; Start 11/11/16 at 06:00 Lorazepam (Ativan) 0.5 mg Q6H PRN IV AGITATION/ANXIETY Last administered on 11/11 19:53; Admin Dose 0.5 MG; Start 11/10/16 at 21:00 Haloperidol (Haldol) 5 mg Q4 PRN IM AGITATION/ANXIETY Last administered on 22:38; Admin Dose 5 MG; Start 11/10/16 at 22:30 Carvedilol (Coreg) 12.5 mg BID PO Last administered on 11/13/16 09:06; Admin Dose 12.5 MG; Start 11/11/16 at 21:00 Polyethylene Glycol (Miralax) 17 gm DAILY PRN GTB CONSTIPATION Last administered on 11/11/16 17:59; Admin Dose 17 GM; Start 11/11/16 at 18:00 Epoetin Frank (Epogen (Non Esrd/Non Oncology)) 10,000 units MoWeFr@17 SC Last administered on 11/12/16 17:32; Admin Dose 10,000 UNITS; Start 11/12/16 at 17:00 Diagnostic Test (Pha) (Accucheck) 1 ea 02 XX Last administered on 11/13/16 02: 00; Admin Dose 1 EA; Start 11/13/16 at 02:00 Miscellaneous Information 1 ea NOTE XX ; Start 11/12/16 at 11:30 Glucose (Glutose) 15 gm Q15M PRN PO DECREASED GLUCOSE; Start 11/12/16 at 11:30 Glucose (Glutose) 22.5 gm Q15M PRN PO DECREASED GLUCOSE; Start 11/12/16 at 11:30 Dextrose (D50w Syringe) 25 ml Q15M PRN IV DECREASED GLUCOSE; Start 11/12/16 at 11:30 Dextrose (D50w Syringe) 50 ml Q15M PRN IV DECREASED GLUCOSE; Start 11/12/16 at 11:30 Glucagon (Glucagen) 1 mg Q15M PRN IM DECREASED GLUCOSE; Start 11/12/16 at 11:30 Glucose (Glutose) 15 gm Q15M PRN BUCCAL DECREASED GLUCOSE; Start 11/12/16 at 11: 30 Collagenase 1 applic 1 applic DAILY TOP Last administered on 11/13/16 10:49; Admin Dose 1 APPLIC; Start 11/12/16 at 13:30 Ferric Sodium Gluconate Complex/ Sodium Chloride (Ferrlecit/NS) 110 ml @ 110 mls/hr Q24H IVPB Last administered on 11/13/16 10:32; Admin Dose 110 MLS/HR; Start 11/13/16 at 09:30; Stop 11/17/16 at 10:29 Bisacodyl (Dulcolax Supp) 10 mg DAILY PRN [place] CONSTIPATION; Start 11/13/16 at 10 :30 Lactulose 20 gm 20 gm Q6H PRN PO CONSTIPATION; Start 11/13/16 at 10:30 Dextrose/Lactated Ringer's (D5-Lr) 1,000 ml @ 60 mls/hr [id number] IV Last administered on 11/13/16t 11:13; Admin Dose 60 MLS/HR; Start 11/13/16 at 11:00 JAYMIE KING Nov 13, 2016 15:03
--- NOTE | 2016-11-13 16:03 | RADRPT ---
PROCEDURE: MR Abdomen without contrast and MRCP. CLINICAL INDICATION: Left suprarenal mass. TECHNIQUE: MRI abdomen without contrast was performed. The following pulse sequences were obtained : Three plane gradient echo localizer, axial fast spin echo T2-weighted images with fat saturation, axial T2-weighted images, MRCP radial gradient echo images, axial T1-weighted gradient echo in phas e and out of phase images, coronal T2-weighted images with fat saturation, axial 3-D LAVA images. COMPARISON: Renal ultrasound dated 11/11/2016 which demonstrated a hypoechoic mass superior medial to the left kidney measuring 9.9 x 6.5 cm. FINDINGS: The liver is normal in size and homogeneous in signal intensity. There is no focal hepatic lesion. The spleen is normal in size and homogeneous in signal intensity. The stomach is partially collapse d but grossly unremarkable. The gallbladder is unremarkable with no evidence of gallstones or cholecystitis. The bile ducts ar e normal with no dilatation or filling defect to suggest calculus. The pancreas is unremarkable. No pancreatic lesion is seen. The right adrenal is normal. As seen on prior ultrasound, there is a mass superior to the left kidn ey, probably arising from the left adrenal gland measuring approximately 7.0 x 5.7 x 8.0 cm in AP, t ransverse, and cranial caudal dimensions. The mass is high in signal intensity centrally on T2-weigh manda images with peripheral low signal. There is restricted diffusion on the diffusion images. There are multiple benign bilateral renal cysts. The mass appears to be an adrenal mass as indicated above. However, there is a chance the mass may be arising from the superior left kidney. The abdominal aorta is not dilated. There is no retroperitoneal lymphadenopathy. IMPRESSION: 1. Normal right adrenal. 2. Probable left adrenal mass measuring 7.0 x 5.7 x 8.0 cm. The signal characteristics indicate the mass may be malignant. Alternatively, this may be a malignant mass arising from the upper left kid riddhi. 3. Multiple benign bilateral renal cysts. 4. Otherwise unremarkable study. RPTAT: QQ .Casa Shepherd MD, Date Time Electronically viewed and signed by .Casa Shepherd MD, on 11/13/2016 16:03 .R/
[2016-11-13 20:14] LABS: ALBUMIN 2.3 g/dL (3.8-4.8)
[2016-11-13] MEDS: TAMSULOSIN (SR) 0.4 MG CAP PO SCH (20:55)
[2016-11-13] MEDS: ATORVASTATIN 40 MG TAB PO SCH (20:56)
[2016-11-14] VITALS (12 sets, daily range): BP systolic 90–127; BP diastolic 52–71; PULSE 82–115; RESP 18–20
[2016-11-14] MEDS: ACCUCHECK XX SCH (02:00)
[2016-11-14] MEDS: DEXTROSE 5%-LR 1,000 ML IV SCH (03:40)
[2016-11-14] MEDS: PANTOPRAZOLE (EC) 40 MG TAB PO SCH ×2 (07:30→10:38)
[2016-11-14] MEDS: metFORMIN 500 MG TAB PO SCH ×2 (07:55→10:38)
[2016-11-14] MEDS: INSULIN ASPART [NOVOLOG] 3 ML PEN SC SCH ×3 (08:19→17:55)
--- NOTE | 2016-11-14 08:44 | CONS ---
Date/Time of Note Date/Time of Note DATE: 11/14/16 TIME: 08:40 Assessment/Plan Assessment/Plan Additional Assessment/Plan 1. I anticipate renal fx will be better today, labs pending. 2. MRI reveals right suprarenal mass, PET scan would be helpful to det whether malignant, additional labs may not be helpful determining whether malignant any my brief rev of the literature indicates fine needle bx may not be helpful, endo evaluation is reasonable as we discussed. reasonable prior to dc, rev with family. 3. No evid chf, once Scr stabilizes can resume diuretics + GORDY (or ARB) Consultation Date/Type/Reason Admit Date/Time Nov 10, 2016 at 03:07 Initial Consult Date 11/10/16 Type of Consultation: Cardiology Detailed Summary Respiratory: cough, No shortness of breath Cardiovascular: No chest pain Gastrointestinal: no complaints Genitourinary: no complaints Exam/Review of Systems Vital Signs Vitals Vital Signs Date Time Temp Pulse Resp B/P Pulse Ox O2 Delivery O2 Flow Rate FiO2 11/14/16 08:23 95 11/14/16 07:33 97.5 18 90/52 100 11/13/16 20:00 Room Air Intake and Output 11/13/16 11/13/16 11/14/16 15:00 23:00 07:00 Intake Total 250 ml 150 ml Balance 250 ml 150 ml Exam Neck: No jvd Respiratory: clear to auscultation Cardiovascular: regular rate and rhythm Gastrointestinal: soft Extremities: No edema (and no calf tend) Results Result Diagram: 11/13/16 0605 11/13/16 0605 Results 24 hrs Laboratory Tests Test 11/13/16 11:21 11/13/16 17:11 11/13/16 21:13 11/14/16 02:20 Bedside Glucose 132 130 189 152 Test 11/14/16 08:01 Bedside Glucose 141 Medications Medications Current Medications Morphine Sulfate (morphine) 2 mg Q2H PRN IV PAIN; Start 11/10/16 at 05:30 Ondansetron HCl (Zofran Inj) 4 mg Q6H PRN IV NAUSEA AND/OR VOMITING; Start 11/10 at 08:00 Acetaminophen (Tylenol Tab) 650 mg Q6H PRN PO PAIN LEVEL 1-3 OR FEVER; Start at 08:00 Acetaminophen/ Hydrocodone Bitart ([place] (5/325)) 1 tab Q6H PRN PO MODERATE PAIN LEVEL 4-6; Start 11/10/16 at 08:00 Morphine Sulfate (morphine) 2 mg Q4H PRN IV SEVERE PAIN LEVEL 7-10; Start at 08:00 Docusate Sodium (Colace) 100 mg Q12H PRN PO CONSTIPATION; Start 11/10/16 at 08: 00 Enoxaparin Sodium (Lovenox) 30 mg DAILY SC Last administered on 11/13/16 09:14 ; Admin Dose 30 MG; Start 11/10/16 at 09:00 Nitroglycerin (Nitroglycerin (Sl Tab) 0.4 Mg) 1 tab Q5M PRN SL CHEST PAIN; Start 11/10/16 at 08:00 Aspirin (Halfprin) 81 mg DAILY PO Last administered on 11/13/16 17:16; Admin Dose 81 MG; Start 11/10/16 at 20:30 Atorvastatin Calcium (Lipitor) 20 mg QHS PO Last administered on 11/13/16 20: 56; Admin Dose 20 MG; Start 11/10/16 at 21:00 Clopidogrel Bisulfate (plaVIX) 75 mg DAILY PO Last administered on 11/13/16 17 :16; Admin Dose 75 MG; Start 11/11/16 at 09:00 Docusate Sodium (Colace) 100 mg DAILY PO Last administered on 11/13/16 17:16; Admin Dose 100 MG; Start 11/10/16 at 20:30 Febuxostat (Uloric) 80 mg DAILY PO Last administered on 11/13/16 17:17; Admin Dose 80 MG; Start 11/11/16 at 09:00 Ferrous Sulfate (Ferrous Sulfate (Ec)) 325 mg BID PO Last administered on 20:55; Admin Dose 325 MG; Start 11/10/16 at 21:00 Isosorbide Dinitrate (Isordil) 10 mg BID PO Last administered on 11/13/16 20: 56; Admin Dose 10 MG; Start 11/10/16 at 21:00 Tamsulosin HCl (Flomax) 0.4 mg HS PO Last administered on 11/13/16 20:55; Admin Dose 0.4 MG; Start 11/10/16 at 21:00 Colchicine (Colchicine) 0.6 mg BID PO Last administered on 11/13/16 20:56; Admin Dose 0.6 MG; Start 11/10/16 at 21:00 Pantoprazole (Protonix Tab) 40 mg DAILY@06 PO Last administered on 11/13/16 06 :16; Admin Dose 40 MG; Start 11/11/16 at 06:00 Lorazepam (Ativan) 0.5 mg Q6H PRN IV AGITATION/ANXIETY Last administered on 11/11 19:53; Admin Dose 0.5 MG; Start 11/10/16 at 21:00 Haloperidol (Haldol) 5 mg Q4 PRN IM AGITATION/ANXIETY Last administered on 22:38; Admin Dose 5 MG; Start 11/10/16 at 22:30 Carvedilol (Coreg) 12.5 mg BID PO Last administered on 11/13/16 20:57; Admin Dose 12.5 MG; Start 11/11/16 at 21:00 Polyethylene Glycol (Miralax) 17 gm DAILY PRN GTB CONSTIPATION Last administered on 11/11/16 17:59; Admin Dose 17 GM; Start 11/11/16 at 18:00 Epoetin Frank (Epogen (Non Esrd/Non Oncology)) 10,000 units MoWeFr@17 SC Last administered on 11/12/16 17:32; Admin Dose 10,000 UNITS; Start 11/12/16 at 17:00 Diagnostic Test (Pha) (Accucheck) 1 ea 02 XX Last administered on 11/13/16 02: 00; Admin Dose 1 EA; Start 11/13/16 at 02:00 Miscellaneous Information 1 ea NOTE XX ; Start 11/12/16 at 11:30 Glucose (Glutose) 15 gm Q15M PRN PO DECREASED GLUCOSE; Start 11/12/16 at 11:30 Glucose (Glutose) 22.5 gm Q15M PRN PO DECREASED GLUCOSE; Start 11/12/16 at 11:30 Dextrose (D50w Syringe) 25 ml Q15M PRN IV DECREASED GLUCOSE; Start 11/12/16 at 11:30 Dextrose (D50w Syringe) 50 ml Q15M PRN IV DECREASED GLUCOSE; Start 11/12/16 at 11:30 Glucagon (Glucagen) 1 mg Q15M PRN IM DECREASED GLUCOSE; Start 11/12/16 at 11:30 Glucose (Glutose) 15 gm Q15M PRN BUCCAL DECREASED GLUCOSE; Start 11/12/16 at 11: 30 Collagenase 1 applic 1 applic DAILY TOP Last administered on 11/13/16 10:49; Admin Dose 1 APPLIC; Start 11/12/16 at 13:30 Ferric Sodium Gluconate Complex/ Sodium Chloride (Ferrlecit/NS) 110 ml @ 110 mls/hr Q24H IVPB Last administered on 11/13/16 10:32; Admin Dose 110 MLS/HR; Start 11/13/16 at 09:30; Stop 11/17/16 at 10:29 Bisacodyl (Dulcolax Supp) 10 mg DAILY PRN [place] CONSTIPATION; Start 11/13/16 at 10 :30 Lactulose 20 gm 20 gm Q6H PRN PO CONSTIPATION; Start 11/13/16 at 10:30 Dextrose/Lactated Ringer's (D5-Lr) 1,000 ml @ 60 mls/hr [id number] IV Last administered on 11/13/16 11:13; Admin Dose 60 MLS/HR; Start 11/13/16 at 11:00 XENA CALHOUN MD Nov 14, 2016 08:43
[2016-11-14] MEDS: COLCHICINE 0.6 MG TAB PO SCH ×2 (09:00→10:36)
[2016-11-14] MEDS: ENOXAPARIN 30 MG/0.3 ML SYG SC SCH ×2 (09:00→10:49)
[2016-11-14] MEDS ORDERED: POLYETHYLENE GLYCOL 17 GM PACKET PO SCH (09:00)
[2016-11-14] MEDS: ISOSORBIDE DINITRATE 10 MG TAB PO SCH ×2 (09:00→10:38)
[2016-11-14] MEDS: DOCUSATE SODIUM 100 MG CAP PO SCH ×2 (09:00→10:51)
[2016-11-14] MEDS: FERROUS SULFATE (EC) 325 MG TAB PO SCH ×2 (09:00→10:37)
[2016-11-14] MEDS: CLOPIDOGREL 75 MG TAB PO SCH ×2 (09:00→10:40)
[2016-11-14] MEDS: FEBUXOSTAT 40 MG TABLET PO SCH ×2 (09:00→10:40)
[2016-11-14] MEDS: ASPIRIN (EC) 81 MG TAB PO SCH ×2 (09:00→10:40)
[2016-11-14] MEDS: COLLAGENASE 30 GM TUBE TOP SCH ×2 (09:00→10:42)
[2016-11-14] MEDS: SOD FERRIC GLUC COMPLX 125 MG in SOD CHLORIDE 0.9% 100 ML IVPB SCH (10:23)
--- NOTE | 2016-11-14 10:36 | PN ---
Date/Time of Note Date/Time of Note DATE: 11/14/16 TIME: 10:33 Assessment/Plan VTE Prophylaxis VTE Prophylaxis Intervention: SCD's Lines/Catheters [facility] Saline [facility] Urinary Cath still in place: No Assessment/Plan Chief Complaint/Hosp Course Assessment and plan 1. Suspect Paroxysmal atrial flutter with RVR. Continue on beta jahaira. Anticoagulation per ladies' hat trimmer. Continue telemetry monitoring. 2. Chest pain secondary to #1. Improved at present. We'll monitor for now 3. Demand ischemia likely secondary to #1. Continue on antiplatelet therapy. 4. History of CAD. Continue antiplatelet therapy and statin medication. Continue on beta jahaira. off marcin inhibitor due to renal dysfunction 5. Iron deficiency anemia. Continue iron supplement 6. History of diabetes. Continue on metformin 7. Dyslipidemia. Patient to be resumed on statin medication 8. Acute on likely chronic any disease. Travel Coordinator following. Monitor renal panel 9. left adrenal mass. Patient with renal ultrasound showing: Large soft tissue mass superior medial to the left kidney, suspicious for a possible large left adrenal mass Patient also with MRI abdomen that did show: - Probable left adrenal mass measuring 7.0 x 5.7 x 8.0 cm. The signal characteristics indicate the mass may be malignant. Alternatively, this may be a malignant mass arising from the upper left kidney. Discussed with nephrology, will get endocrine consult Disposition and plan: Will get endocrine consultation for left adrenal mass. Will follow up recs Discussed plan of care with Dr. Powell Problems: Subjective 24 Hr Interval Summary Free Text/Dictation no s/s of acute distress Exam/Review of Systems Vital Signs Vitals Vital Signs Date Time Temp Pulse Resp B/P Pulse Ox O2 Delivery O2 Flow Rate FiO2 11/14/16 08:45 86 119/56 11/14/16 07:33 97.5 18 100 11/13/16 20:00 Room Air Intake and Output 11/13/16 11/13/16 11/14/16 15:00 23:00 07:00 Intake Total 250 ml 150 ml Balance 250 ml 150 ml Exam General: No acute signs or symptoms of distress Eyes: pupils equal round, Anicteric sclera Neck: Supple nontender, no JVD Cardiac: Irregular rate Pulmonary: No coarse rhonchi or breathing auscultated GI: Abdomen soft nontender nondistended, bowel sounds active Extremities: No edema bilateral lower extremities. Noted with slightly contracted left upper extremity Skin: Clean dry and intact Neurologic: more alert today, alert to person, place, situation Results Result Diagram: 11/13/16 0605 11/13/16 0605 Results 24 hrs Laboratory Tests Test 11/13/16 11:21 11/13/16 17:11 11/13/16 21:13 11/14/16 02:20 Bedside Glucose 132 130 189 152 Test 11/14/16 08:01 Bedside Glucose 141 Medications Medications Current Medications Morphine Sulfate (morphine) 2 mg Q2H PRN IV PAIN; Start 11/10/16 at 05:30 Ondansetron HCl (Zofran Inj) 4 mg Q6H PRN IV NAUSEA AND/OR VOMITING; Start 11/10 at 08:00 Acetaminophen (Tylenol Tab) 650 mg Q6H PRN PO PAIN LEVEL 1-3 OR FEVER; Start at 08:00 Acetaminophen/ Hydrocodone Bitart ([place] (5/325)) 1 tab Q6H PRN PO MODERATE PAIN LEVEL 4-6; Start 11/10/16 at 08:00 Morphine Sulfate (morphine) 2 mg Q4H PRN IV SEVERE PAIN LEVEL 7-10; Start at 08:00 Docusate Sodium (Colace) 100 mg Q12H PRN PO CONSTIPATION; Start 11/10/16 at 08: 00 Enoxaparin Sodium (Lovenox) 30 mg DAILY SC Last administered on 11/13/16 09:14 ; Admin Dose 30 MG; Start 11/10/16 at 09:00 Nitroglycerin (Nitroglycerin (Sl Tab) 0.4 Mg) 1 tab Q5M PRN SL CHEST PAIN; Start 11/10/16 at 08:00 Aspirin (Halfprin) 81 mg DAILY PO Last administered on 11/13/16 17:16; Admin Dose 81 MG; Start 11/10/16 at 20:30 Atorvastatin Calcium (Lipitor) 20 mg QHS PO Last administered on 11/13/16 20: 56; Admin Dose 20 MG; Start 11/10/16 at 21:00 Clopidogrel Bisulfate (plaVIX) 75 mg DAILY PO Last administered on 11/13/16 17 :16; Admin Dose 75 MG; Start 11/11/16 at 09:00 Docusate Sodium (Colace) 100 mg DAILY PO Last administered on 11/13/16 17:16; Admin Dose 100 MG; Start 11/10/16 at 20:30 Febuxostat (Uloric) 80 mg DAILY PO Last administered on 11/13/16 17:17; Admin Dose 80 MG; Start 11/11/16 at 09:00 Ferrous Sulfate (Ferrous Sulfate (Ec)) 325 mg BID PO Last administered on 20:55; Admin Dose 325 MG; Start 11/10/16 at 21:00 Isosorbide Dinitrate (Isordil) 10 mg BID PO Last administered on 11/13/16 20: 56; Admin Dose 10 MG; Start 11/10/16 at 21:00 Tamsulosin HCl (Flomax) 0.4 mg HS PO Last administered on 11/13/16 20:55; Admin Dose 0.4 MG; Start 11/10/16 at 21:00 Colchicine (Colchicine) 0.6 mg BID PO Last administered on 11/13/16 20:56; Admin Dose 0.6 MG; Start 11/10/16 at 21:00 Pantoprazole (Protonix Tab) 40 mg DAILY@06 PO Last administered on 11/13/16 06 :16; Admin Dose 40 MG; Start 11/11/16 at 06:00 Lorazepam (Ativan) 0.5 mg Q6H PRN IV AGITATION/ANXIETY Last administered on 11/11 19:53; Admin Dose 0.5 MG; Start 11/10/16 at 21:00 Haloperidol (Haldol) 5 mg Q4 PRN IM AGITATION/ANXIETY Last administered on 22:38; Admin Dose 5 MG; Start 11/10/16 at 22:30 Carvedilol (Coreg) 12.5 mg BID PO Last administered on 11/13/16 20:57; Admin Dose 12.5 MG; Start 11/11/16 at 21:00 Polyethylene Glycol (Miralax) 17 gm DAILY PRN GTB CONSTIPATION Last administered on 11/11/16 17:59; Admin Dose 17 GM; Start 11/11/16 at 18:00 Epoetin Frank (Epogen (Non Esrd/Non Oncology)) 10,000 units MoWeFr@17 SC Last administered on 11/12/16 17:32; Admin Dose 10,000 UNITS; Start 11/12/16 at 17:00 Diagnostic Test (Pha) (Accucheck) 1 ea 02 XX Last administered on 11/13/16 02: 00; Admin Dose 1 EA; Start 11/13/16 at 02:00 Miscellaneous Information 1 ea NOTE XX ; Start 11/12/16 at 11:30 Glucose (Glutose) 15 gm Q15M PRN PO DECREASED GLUCOSE; Start 11/12/16 at 11:30 Glucose (Glutose) 22.5 gm Q15M PRN PO DECREASED GLUCOSE; Start 11/12/16 at 11:30 Dextrose (D50w Syringe) 25 ml Q15M PRN IV DECREASED GLUCOSE; Start 11/12/16 at 11:30 Dextrose (D50w Syringe) 50 ml Q15M PRN IV DECREASED GLUCOSE; Start 11/12/16 at 11:30 Glucagon (Glucagen) 1 mg Q15M PRN IM DECREASED GLUCOSE; Start 11/12/16 at 11:30 Glucose (Glutose) 15 gm Q15M PRN BUCCAL DECREASED GLUCOSE; Start 11/12/16 at 11: 30 Collagenase 1 applic 1 applic DAILY TOP Last administered on 11/13/16 10:49; Admin Dose 1 APPLIC; Start 11/12/16 at 13:30 Ferric Sodium Gluconate Complex/ Sodium Chloride (Ferrlecit/NS) 110 ml @ 110 mls/hr Q24H IVPB Last administered on 11/14/16 10:23; Admin Dose 110 MLS/HR; Start 11/13/16 at 09:30; Stop 11/17/16 at 10:29 Bisacodyl (Dulcolax Supp) 10 mg DAILY PRN [place] CONSTIPATION; Start 11/13/16 at 10 :30 Lactulose 20 gm 20 gm Q6H PRN PO CONSTIPATION; Start 11/13/16 at 10:30 Dextrose/Lactated Ringer's (D5-Lr) 1,000 ml @ 60 mls/hr [id number] IV Last administered on 11/13/16 11:13; Admin Dose 60 MLS/HR; Start 11/13/16 at 11:00 JAYMIE KING Nov 14, 2016 10:35
[2016-11-14] MEDS ORDERED: CARV12.579 PO (11:32)
--- NOTE | 2016-11-14 11:34 | PDOCDIS ---
Discharge Instructions DIAGNOSIS Discharge Diagnosis: 1. atrial flutter with RVR. 2. CKD 3. left adrenal mass CONDITION Patient Condition: Stable HOME CARE INSTRUCTIONS: Special Diet: carb. control diet FOLLOW UP/APPOINTMENTS Appointments 1. Follow up with Dr. Tobin Gutiérrez in one week 2. Follow up with Dr. Elder Scherer in 1 week 3. Follow up with Dr. Dionicio Moses in 1 week JAYMIE KING Nov 14, 2016 11:34
[2016-11-14 14:14] LABS: EOSINOPHILS # 0.1 10^3/ul (0.0-0.5); EOSINOPHILS % 1.8 % (0.0-7.0); HEMATOCRIT 28.2 % (42.0-52.0); HEMOGLOBIN 9.3 g/dl (14.0-18.0); LYMPHOCYTES # 1.1 10^3/ul (0.8-2.9); LYMPHOCYTES % 16.8 % (15.0-51.0); MEAN CORPUSCULAR HEMOGLOBIN 26.2 pg (29.0-33.0); MEAN CORPUSCULAR HGB CONC 32.8 g/dl (32.0-37.0); MEAN PLATELET VOLUME 10.1 fl (7.4-10.4); MONOCYTE # 0.4 10^3/ul (0.3-0.9); MONOCYTES % 5.8 % (0.0-11.0); NEUTROPHIL # 4.9 10^3/ul (1.6-7.5); NEUTROPHILS % 75.6 % (39.0-77.0); PLATELET COUNT 277 10^3/UL (140-440); RED BLOOD COUNT 3.53 10^6/ul (4.70-6.10); UNCORRECTED WBC 6.5 10^3/ul (4.8-10.8); WHITE BLOOD COUNT 6.5 10^3/ul (4.8-10.8)
[2016-11-14 14:16] LABS: CONDITION 1; LH ANALYZER COMMENTS 1; SUSPECT 1
[2016-11-14 14:23] LABS: POTASSIUM 4.8 mmol/L (3.5-5.1)
[2016-11-14 14:25] LABS: CREATININE 1.9 mg/dl (0.61-1.24)
[2016-11-14 14:26] LABS: CALCIUM 8.8 mg/dl (8.4-10.2); PHOSPHORUS 4.5 mg/dl (2.5-4.9)
[2016-11-14 14:27] LABS: MAGNESIUM 1.9 mg/dl (1.7-2.5)
--- NOTE | 2016-11-14 15:20 | CONS ---
Date/Time of Note Date/Time of Note DATE: 11/14/16 TIME: 15:17 Assessment/Plan Assessment/Plan Chief Complaint/Hosp Course Paroxysmal atrial flutter with rapid ventricular rates: Now back in sinus rhythm. CHADSVASC is at least 6, will need chronic anticoagulation. Cardiomyopathy: LVEF 20%. Likely chronic. Compensated by exam NSVT vs SVT with aberrancy CAD s/p CAB years ago, other details known KRIS vs CKD: renal function improving H/o CVA HTN DM Left adrenal mass -continue Coreg 12.5mg BID -holding enalapril, resume when renal function stabilizes -continue atorvastatin -will eventually start on Eliquis when renal function stabilizes, can discontinue aspirin and clopidogrel at that time -patient will need to follow up with his outpatient principal associate after discharge Problems: Consultation Date/Type/Reason Admit Date/Time Nov 10, 2016 at 03:07 Initial Consult Date 11/10/16 Type of Consultation: Cardiology 24 HR Interval Summary Free Text/Dictation Abdominal MRI showed left adrenal mass. Detailed Summary Additional Comments 14 point review of systems without changes. Exam/Review of Systems Vital Signs Vitals Vital Signs Date Time Temp Pulse Resp B/P Pulse Ox O2 Delivery O2 Flow Rate FiO2 11/14/16 15:15 97.7 82 20 105/56 100 11/13/16 20:00 Room Air Intake and Output 11/13/16 11/13/16 11/14/16 15:00 23:00 07:00 Intake Total 250 ml 150 ml Balance 250 ml 150 ml Exam Constitutional: alert Psych: no complaints Head: atraumatic, normocephalic Neck: jvd (6cm) Respiratory: clear to auscultation Cardiovascular: regular rate and rhythm, systolic murmur (2/6), No edema Gastrointestinal: soft Neurological: No nl mental status, No nl speech Results Result Diagram: 11/14/16 1350 11/14/16 1350 Results 24 hrs Laboratory Tests Test 11/13/16 17:11 11/13/16 21:13 11/14/16 02:20 11/14/16 08:01 Bedside Glucose 130 189 152 141 Test 11/14/16 11:50 11/14/16 13:50 Bedside Glucose 156 Anion Gap 18 H Basophils # 0.0 Basophils % 0.0 Blood Morphology Comment Blood Urea Nitrogen 44 H Calcium Level 8.8 Carbon Dioxide Level 20 L Chloride Level 105 Creatinine 1.90 H Eosinophils # 0.1 Eosinophils % 1.8 Glucose Level 145 Hematocrit 28.2 L Hemoglobin 9.3 L Lymphocytes # 1.1 Lymphocytes % 16.8 Magnesium Level 1.9 Mean Corpuscular Hemoglobin 26.2 L Mean Corpuscular Hemoglobin Concent 32.8 Mean Corpuscular Volume 80.0 L Mean Platelet Volume 10.1 Monocytes # 0.4 Monocytes % 5.8 Neutrophils # 4.9 Neutrophils % 75.6 Nucleated Red Blood Cells # 0.0 Nucleated Red Blood Cells % 0.0 Phosphorus Level 4.5 Platelet Count 277 Potassium Level 4.8 Red Blood Count 3.53 L Red Cell Distribution Width 18.0 H Sodium Level 138 White Blood Count 6.5 Medications Medications Current Medications Morphine Sulfate (morphine) 2 mg Q2H PRN IV PAIN; Start 11/10/16 at 05:30 Ondansetron HCl (Zofran Inj) 4 mg Q6H PRN IV NAUSEA AND/OR VOMITING; Start 11/10 at 08:00 Acetaminophen (Tylenol Tab) 650 mg Q6H PRN PO PAIN LEVEL 1-3 OR FEVER; Start at 08:00 Acetaminophen/ Hydrocodone Bitart ([place] (5/325)) 1 tab Q6H PRN PO MODERATE PAIN LEVEL 4-6; Start 11/10/16 at 08:00 Morphine Sulfate (morphine) 2 mg Q4H PRN IV SEVERE PAIN LEVEL 7-10; Start at 08:00 Docusate Sodium (Colace) 100 mg Q12H PRN PO CONSTIPATION; Start 11/10/16 at 08: 00 Enoxaparin Sodium (Lovenox) 30 mg DAILY SC Last administered on 11/14/16 10:49 ; Admin Dose 30 MG; Start 11/10/16 at 09:00 Nitroglycerin (Nitroglycerin (Sl Tab) 0.4 Mg) 1 tab Q5M PRN SL CHEST PAIN; Start 11/10/16 at 08:00 Aspirin (Halfprin) 81 mg DAILY PO Last administered on 11/14/16 10:40; Admin Dose 81 MG; Start 11/10/16 at 20:30 Atorvastatin Calcium (Lipitor) 20 mg QHS PO Last administered on 11/13/16 20: 56; Admin Dose 20 MG; Start 11/10/16 at 21:00 Clopidogrel Bisulfate (plaVIX) 75 mg DAILY PO Last administered on 11/14/16 10 :40; Admin Dose 75 MG; Start 11/11/16 at 09:00 Docusate Sodium (Colace) 100 mg DAILY PO Last administered on 11/14/16 10:51; Admin Dose 100 MG; Start 11/10/16 at 20:30 Febuxostat (Uloric) 80 mg DAILY PO Last administered on 11/14/16 10:40; Admin Dose 80 MG; Start 11/11/16 at 09:00 Ferrous Sulfate (Ferrous Sulfate (Ec)) 325 mg BID PO Last administered on 10:37; Admin Dose 325 MG; Start 11/10/16 at 21:00 Isosorbide Dinitrate (Isordil) 10 mg BID PO Last administered on 11/14/16 10: 38; Admin Dose 10 MG; Start 11/10/16 at 21:00 Tamsulosin HCl (Flomax) 0.4 mg HS PO Last administered on 11/13/16 20:55; Admin Dose 0.4 MG; Start 11/10/16 at 21:00 Colchicine (Colchicine) 0.6 mg BID PO Last administered on 11/14/16 10:36; Admin Dose 0.6 MG; Start 11/10/16 at 21:00 Pantoprazole (Protonix Tab) 40 mg DAILY@06 PO Last administered on 11/14/16 10 :38; Admin Dose 40 MG; Start 11/11/16 at 06:00 Lorazepam (Ativan) 0.5 mg Q6H PRN IV AGITATION/ANXIETY Last administered on 11/11 19:53; Admin Dose 0.5 MG; Start 11/10/16 at 21:00 Haloperidol (Haldol) 5 mg Q4 PRN IM AGITATION/ANXIETY Last administered on 22:38; Admin Dose 5 MG; Start 11/10/16 at 22:30 Carvedilol (Coreg) 12.5 mg BID PO Last administered on 11/14/16 10:37; Admin Dose 12.5 MG; Start 11/11/16 at 21:00 Polyethylene Glycol (Miralax) 17 gm DAILY PRN GTB CONSTIPATION Last administered on 11/11/16 17:59; Admin Dose 17 GM; Start 11/11/16 at 18:00 Epoetin Frank (Epogen (Non Esrd/Non Oncology)) 10,000 units MoWeFr@17 SC Last administered on 11/12/16 17:32; Admin Dose 10,000 UNITS; Start 11/12/16 at 17:00 Diagnostic Test (Pha) (Accucheck) 1 ea 02 XX Last administered on 11/13/16 02: 00; Admin Dose 1 EA; Start 11/13/16 at 02:00 Miscellaneous Information 1 ea NOTE XX ; Start 11/12/16 at 11:30 Glucose (Glutose) 15 gm Q15M PRN PO DECREASED GLUCOSE; Start 11/12/16 at 11:30 Glucose (Glutose) 22.5 gm Q15M PRN PO DECREASED GLUCOSE; Start 11/12/16 at 11:30 Dextrose (D50w Syringe) 25 ml Q15M PRN IV DECREASED GLUCOSE; Start 11/12/16 at 11:30 Dextrose (D50w Syringe) 50 ml Q15M PRN IV DECREASED GLUCOSE; Start 11/12/16 at 11:30 Glucagon (Glucagen) 1 mg Q15M PRN IM DECREASED GLUCOSE; Start 11/12/16 at 11:30 Glucose (Glutose) 15 gm Q15M PRN BUCCAL DECREASED GLUCOSE; Start 11/12/16 at 11: 30 Collagenase 1 applic 1 applic DAILY TOP Last administered on 11/14/16 10:42; Admin Dose 1 APPLIC; Start 11/12/16 at 13:30 Ferric Sodium Gluconate Complex/ Sodium Chloride (Ferrlecit/NS) 110 ml @ 110 mls/hr Q24H IVPB Last administered on 11/14/16 10:23; Admin Dose 110 MLS/HR; Start 11/13/16 at 09:30; Stop 11/17/16 at 10:29 Bisacodyl (Dulcolax Supp) 10 mg DAILY PRN [place] CONSTIPATION; Start 11/13/16 at 10 :30 Lactulose 20 gm 20 gm Q6H PRN PO CONSTIPATION; Start 11/13/16 at 10:30 Dextrose/Lactated Ringer's (D5-Lr) 1,000 ml @ 60 mls/hr [id number] IV Last administered on 11/13/16 11:13; Admin Dose 60 MLS/HR; Start 11/13/16 at 11:00 ARLENE FUNEZ MD Nov 14, 2016 15:20
[2016-11-14] MEDS: EPOETIN 10000 UNITS/ML (NON ESRD/NON ONCOLOGY) SC SCH (17:00)
[2016-11-14] MEDS ORDERED: LACTATED RINGER'S 250 ML IV ONE (18:00)
[2016-11-14] MEDS ORDERED: FINASTERIDE 5 MG TAB PO ONE (18:00)
--- NOTE | 2016-11-14 18:11 | CONS ---
DATE OF ADMISSION: 11/10/2016 DATE OF CONSULTATION: 11/14/2016 HISTORY OF PRESENT ILLNESS: Mr. Monster Mcintosh is a 71-year-old male who was admitted to [facility] on 11/10/2016 due to atrial flutter. During his workup, he was noted to have some renal insufficiency which prompted a workup and during the workup, he was found to have a possible l eft adrenal masses. I was called for consultation. PAST MEDICAL HISTORY: Significant coronary artery disease. Atrial flutter, hypertension, CVA and M I. PAST SURGICAL HISTORY: Status post CABG. ALLERGIES: NO KNOWN DRUG ALLERGIES. MEDICATIONS: None reported. FAMILY HISTORY: Noncontributory. SOCIAL HISTORY: No drinking, drug use or smoking. PHYSICAL EXAMINATION: GENERAL: He is a well-nourished, overweight male in no apparent distress. He is quite somnolent at this point. VITAL SIGNS: He is currently afebrile. Vital signs stable. CHEST: Clear to auscultation bilaterally. HEART: Regular rhythm. ABDOMEN: Protuberant but soft. LABORATORY DATA: Reveal white count of 6, hematocrit 28 and platelets of 277. Sodium 138, potassiu m 4.8, chloride 105, CO2 of 20, BUN and creatinine 44/1.9. An abdominal MRI revealed a normal right adrenal and probable left adrenal mass measuring 7 x 6 x 8 cm. The signal characteristics indicat e the possibility of malignancy. ASSESSMENT AND PLAN: Mr. Mcintosh is a 71-year-old male with a possible left adrenal incidentaloma. 1. Obviously, the patient needs more of an endocrine workup to see if this is functioning or nonfun ctioning. 2. He likely will need more imaging to determine if this is benign or malignant. 3. Regardless if it is functioning or not based on its size, it probably should be removed if it is coming from the adrenals. 4. However, I am not sure due to the patient's cardiac status if he would be a surgical candidate. 5. I discussed this in detail with the patient. Patient will follow up with me as an outpatient. Dictated By: ASHER LEHMAN/FLAVIA Conf#: [id number] DID#: [id number]
--- NOTE | 2016-11-14 18:12 | CONS ---
Date/Time of Note Date/Time of Note DATE: 11/14/16 TIME: 18:02 Assessment/Plan Assessment/Plan Problems: (1) Diabetes mellitus type 2 in nonobese Status: Chronic Comment: The patient's A1c indicates long-term good control. His neck he came into is on metformin which suggests his renal function was at least relatively good before he got sick. We will continue to observe him off of the metformin for the time being. Ultimate decisions about this therapeutic protocol based on how his renal function improves. (2) Left adrenal mass Status: Acute Comment: This was an unknown period and then try and forward copies of our scans to his primary physician so that it will make it possible for us to dovetail everything together. I do not believe the family is interested in having us trying pursue this at our facility and as this is not of an absolute immediacy to pursue we can let his primary team at [facility] work on this please not have ordered 24 urine cortisols however the ultimate evaluation will be that he needs a surgical excisional biopsy by an experienced surgeon (3) Iron deficiency anemia Status: Chronic Comment: As noted above he is receiving IV iron to help with this. Qualifiers: Qualified Code: D50.9 - Iron deficiency anemia, unspecified iron deficiency anemia type (4) Tobacco abuse disorder Status: Chronic Comment: He and his family have been counseled (5) Ischemic dilated cardiomyopathy Status: Chronic Comment: Ultimately he should go back on his GORDY inhibitor when his renal function improves in combination with the beta-jahaira which will help with the atrial tachydysrhythmia that brought him into the hospital. Cardiology is managing (6) Acute kidney injury Status: Acute Comment: Is still appears that he is somewhat dehydrated. This will be observed closely please note he also appears to have an obstructive uropathy with a postvoid residual of 200 cc. Consultation Date/Type/Reason Admit Date/Time Nov 10, 2016 at 03:07 Date of Consultation: Nov 14, 2016 Type of Consultation: Endocrinology Reason for Consultation Left adrenal mass; diabetes mellitus type 2 borderline Referring Provider: MIRANDA GAFFNEY of Present Illness 71-year-old Malay male admitted on the seventh for acute dysrhythmia of the heart with acute kidney injury on top of chronic kidney disease. In the course of his workup he had a renal ultrasound to look at the kidneys and it was discovered he had a large left adrenal mass. MRI scan done without contrast (due to renal insufficiency) is consistent with a suspicious mass. According to the patient and 2 of his daughters at the bedside this was an unknown known phenomenon. They report that his primary doctor is Dr. Bandar Cleaning in [place]. He has no endocrine symptomatology Constitutional: no complaints Respiratory: cough, no complaints, No shortness of breath Cardiovascular: No chest pain Gastrointestinal: no complaints Genitourinary: no complaints Neurologic: other (family reports he became very lethargic after ativan) Psychological: anxiety, confusion Past Medical History Medical History: congestive heart failure (Dilated ischemic cardiomyopathy), coronary artery disease (Status post CABG roughly 8-10 years ago), diabetes ( Diabetes mellitus type 2 on oral agents), GERD, high cholesterol, hypertension, other (Benign prostatic hypertrophy with urinary obstruction and postvoid residual of 200; hyperuricemia gout; iron deficiency anemia cause unknown; status post CVA; tobacco abuse disorder) Past Surgical History Past Surgical Hx: coronary bypass surgery Family History Significant Family History: diabetes, hypertension Social History Alcohol Use: none Smoking Status: Current every day smoker Drug Use: none Exam/Review of Systems Vital Signs Vitals Vital Signs Date Time Temp Pulse Resp B/P Pulse Ox O2 Delivery O2 Flow Rate FiO2 11/14/16 16:15 82 11/14/16 15:15 97.7 20 105/56 100 11/13/16 20:00 Room Air Intake and Output 11/13/16 11/13/16 11/14/16 15:00 23:00 07:00 Intake Total 250 ml 150 ml Balance 250 ml 150 ml Exam Elderly male lying in bed who does answer questions Constitutional: alert Respiratory: clear to auscultation, normal air movement Cardiovascular: nl pulses, regular rate and rhythm Gastrointestinal: nl liver, spleen, non-tender, soft Results Result Diagram: 11/14/16 1350 11/14/16 1350 Results 24 hrs Laboratory Tests Test 11/13/16 21:13 11/14/16 02:20 11/14/16 08:01 11/14/16 11:50 Bedside Glucose 189 152 141 156 Test 11/14/16 13:50 Anion Gap 18 H Basophils # 0.0 Basophils % 0.0 Blood Morphology Comment Blood Urea Nitrogen 44 H Calcium Level 8.8 Carbon Dioxide Level 20 L Chloride Level 105 Creatinine 1.90 H Eosinophils # 0.1 Eosinophils % 1.8 Glucose Level 145 Hematocrit 28.2 L Hemoglobin 9.3 L Lymphocytes # 1.1 Lymphocytes % 16.8 Magnesium Level 1.9 Mean Corpuscular Hemoglobin 26.2 L Mean Corpuscular Hemoglobin Concent 32.8 Mean Corpuscular Volume 80.0 L Mean Platelet Volume 10.1 Monocytes # 0.4 Monocytes % 5.8 Neutrophils # 4.9 Neutrophils % 75.6 Nucleated Red Blood Cells # 0.0 Nucleated Red Blood Cells % 0.0 Phosphorus Level 4.5 Platelet Count 277 Potassium Level 4.8 Red Blood Count 3.53 L Red Cell Distribution Width 18.0 H Sodium Level 138 White Blood Count 6.5 Medications Medications Current Medications Morphine Sulfate (morphine) 2 mg Q2H PRN IV PAIN; Start 11/10/16 at 05:30 Ondansetron HCl (Zofran Inj) 4 mg Q6H PRN IV NAUSEA AND/OR VOMITING; Start 11/10 at 08:00 Acetaminophen (Tylenol Tab) 650 mg Q6H PRN PO PAIN LEVEL 1-3 OR FEVER; Start at 08:00 Acetaminophen/ Hydrocodone Bitart ([place] (5/325)) 1 tab Q6H PRN PO MODERATE PAIN LEVEL 4-6; Start 11/10/16 at 08:00 Morphine Sulfate (morphine) 2 mg Q4H PRN IV SEVERE PAIN LEVEL 7-10; Start at 08:00 Docusate Sodium (Colace) 100 mg Q12H PRN PO CONSTIPATION; Start 11/10/16 at 08: 00 Enoxaparin Sodium (Lovenox) 30 mg DAILY SC Last administered on 11/14/16 10:49 ; Admin Dose 30 MG; Start 11/10/16 at 09:00 Nitroglycerin (Nitroglycerin (Sl Tab) 0.4 Mg) 1 tab Q5M PRN SL CHEST PAIN; Start 11/10/16 at 08:00 Aspirin (Halfprin) 81 mg DAILY PO Last administered on 11/14/16 10:40; Admin Dose 81 MG; Start 11/10/16 at 20:30 Atorvastatin Calcium (Lipitor) 20 mg QHS PO Last administered on 11/13/16 20: 56; Admin Dose 20 MG; Start 11/10/16 at 21:00 Clopidogrel Bisulfate (plaVIX) 75 mg DAILY PO Last administered on 11/14/16 10 :40; Admin Dose 75 MG; Start 11/11/16 at 09:00 Docusate Sodium (Colace) 100 mg DAILY PO Last administered on 11/14/16 10:51; Admin Dose 100 MG; Start 11/10/16 at 20:30 Febuxostat (Uloric) 80 mg DAILY PO Last administered on 11/14/16 10:40; Admin Dose 80 MG; Start 11/11/16 at 09:00 Ferrous Sulfate (Ferrous Sulfate (Ec)) 325 mg BID PO Last administered on 10:37; Admin Dose 325 MG; Start 11/10/16 at 21:00 Isosorbide Dinitrate (Isordil) 10 mg BID PO Last administered on 11/14/16 10: 38; Admin Dose 10 MG; Start 11/10/16 at 21:00 Tamsulosin HCl (Flomax) 0.4 mg HS PO Last administered on 11/13/16 20:55; Admin Dose 0.4 MG; Start 11/10/16 at 21:00 Colchicine (Colchicine) 0.6 mg BID PO Last administered on 11/14/16 10:36; Admin Dose 0.6 MG; Start 11/10/16 at 21:00 Pantoprazole (Protonix Tab) 40 mg DAILY@06 PO Last administered on 11/14/16 10 :38; Admin Dose 40 MG; Start 11/11/16 at 06:00 Lorazepam (Ativan) 0.5 mg Q6H PRN IV AGITATION/ANXIETY Last administered on 11/11 19:53; Admin Dose 0.5 MG; Start 11/10/16 at 21:00 Haloperidol (Haldol) 5 mg Q4 PRN IM AGITATION/ANXIETY Last administered on 22:38; Admin Dose 5 MG; Start 11/10/16 at 22:30 Carvedilol (Coreg) 12.5 mg BID PO Last administered on 11/14/16 10:37; Admin Dose 12.5 MG; Start 11/11/16 at 21:00 Polyethylene Glycol (Miralax) 17 gm DAILY PRN GTB CONSTIPATION Last administered on 11/11/16 17:59; Admin Dose 17 GM; Start 11/11/16 at 18:00 Epoetin Frank (Epogen (Non Esrd/Non Oncology)) 10,000 units MoWeFr@17 SC Last administered on 11/12/16 17:32; Admin Dose 10,000 UNITS; Start 11/12/16 at 17:00 Diagnostic Test (Pha) (Accucheck) 1 ea 02 XX Last administered on 11/13/16 02: 00; Admin Dose 1 EA; Start 11/13/16 at 02:00 Miscellaneous Information 1 ea NOTE XX ; Start 11/12/16 at 11:30 Glucose (Glutose) 15 gm Q15M PRN PO DECREASED GLUCOSE; Start 11/12/16 at 11:30 Glucose (Glutose) 22.5 gm Q15M PRN PO DECREASED GLUCOSE; Start 11/12/16 at 11:30 Dextrose (D50w Syringe) 25 ml Q15M PRN IV DECREASED GLUCOSE; Start 11/12/16 at 11:30 Dextrose (D50w Syringe) 50 ml Q15M PRN IV DECREASED GLUCOSE; Start 11/12/16 at 11:30 Glucagon (Glucagen) 1 mg Q15M PRN IM DECREASED GLUCOSE; Start 11/12/16 at 11:30 Glucose (Glutose) 15 gm Q15M PRN BUCCAL DECREASED GLUCOSE; Start 11/12/16 at 11: 30 Collagenase 1 applic 1 applic DAILY TOP Last administered on 11/14/16 10:42; Admin Dose 1 APPLIC; Start 11/12/16 at 13:30 Ferric Sodium Gluconate Complex/ Sodium Chloride (Ferrlecit/NS) 110 ml @ 110 mls/hr Q24H IVPB Last administered on 11/14/16 10:23; Admin Dose 110 MLS/HR; Start 11/13/16 at 09:30; Stop 11/17/16 at 10:29 Bisacodyl (Dulcolax Supp) 10 mg DAILY PRN [place] CONSTIPATION; Start 11/13/16 at 10 :30 Lactulose 20 gm 20 gm Q6H PRN PO CONSTIPATION; Start 11/13/16 at 10:30 Dextrose/Lactated Ringer's (D5-Lr) 1,000 ml @ 60 mls/hr [id number] IV Last administered on 11/13/16 11:13; Admin Dose 60 MLS/HR; Start 11/13/16 at 11:00 Finasteride 5 mg 5 mg DAILY PO ; Start 11/15/16 at 09:00 Ferric Sodium Gluconate Complex 125 mg/Sodium Chloride 110 ml @ 100 mls/hr ONCE ONCE IVPB ; Start 11/14/16 at 19:30; Stop 11/14/16 at 20:35 Lactated Ringer's (Lr) 250 ml @ 250 mls/hr Q1H ONCE IV ; Start 11/14/16 at 18: 00; Stop 11/14/16 at 18:59 FRANK MAYER MD Nov 14, 2016 18:12
[2016-11-14] MEDS ORDERED: SOD FERRIC GLUC COMPLX 125 MG in SOD CHLORIDE 0.9% 100 ML IVPB ONE (19:30)
[2016-11-15] MEDS ORDERED: FINASTERIDE 5 MG TAB PO SCH (09:00)
--- NOTE | 2016-11-17 15:18 | DS ---
DATE OF ADMISSION: 11/10/2016 DATE OF DISCHARGE: 11/14/2016 CONSULTANTS: 1. Dionicio Moses MD 2. Tobin Gutiérrez MD 3. Elder Scherer MD 4. Jostin Rosales MD DISCHARGE DIAGNOSES: 1. Proximal atrial flutter with rapid ventricular response. 2. Chest pain secondary to #1. 3. Demand ischemia, likely secondary to #1. 4. History of cerebrovascular accident. 5. Iron deficiency anemia. 6. Diabetes. 7. Acute on chronic kidney disease. 8. Left adrenal mass. HOSPITAL COURSE: This is a 71-year-old male with history of CAD status post CABG, who came to [facility], who reports palpitations and weakness for 2 days' duration. In the ER, brandon hernandez was found to have atrial flutter reported rapid response. The patient was seen by a card iologist for this issue. We did continue the patient on beta jahaira medication. His heart rate di d stabilize. Of note, we did also obtain echocardiogram for the patient which did show him to have an ejection fraction of approximately 20%. The patient was optimized with his cardiovascular medica tions. He was also seen with acute kidney injury. We did continue slow hydration for this patient and we also did consult a shorts sifter. We did obtain further renal ultrasound which did show the p atient to have large soft tissue mass superior medial to the left kidney, suspicious for possible le ft large adrenal mass. We did get an MRI for further delineation, which did show probable left adre nal measuring 7 x 5.7 x 8 cm. We also did get consultation by debarker operator for this issue. Afte r discussed with debarker operator, we also did get the patient a surgical consultation. The findings of the mass were new. After discussion with debarker operator, likely this will be worked up as an o utpatient with also further followup with surgeon as outpatient. During the course of his stay, he did improve. His heart rate did remain stable. We optimize him with iron supplement for his iron d eficiency, as well as antiplatelet therapy and statin medication for his CAD. His renal function al so did slowly improve. The plan of care was discussed with family and family verbalized their under standing. On the day of discharge, the patient was in stable condition. DISCHARGE PHYSICAL EXAMINATION: VITAL SIGNS: Stable. CONDITION: Stable. DISCHARGE PLAN: 1. The patient to follow up with Dr. Tobin Gutiérrez in a week. 2. The patient to follow up with Dr. Elder Scherer in a week. 3. The patient to follow up with Dr. Dionicio Moses in 1 week. DISCHARGE MEDICATIONS: 1. Carvedilol 12.5 mg p.o. b.i.d. 2. Aspirin 81 mg p.o. daily. 3. Atorvastatin 20 mg p.o. at bedtime. 4. Plavix 75 mg p.o. daily. 5. Colchicine 0.6 mg p.o. b.i.d. 6. Colace 100 mg p.o. daily. 7. Enalapril 20 mg p.o. b.i.d. 8. Nexium 40 mg p.o. daily. 9. Uloric 80 mg p.o. b.i.d. 10. Ferrous sulfate 325 mg p.o. b.i.d. 11. Lasix 20 mg p.o. daily. 11. Isosorbide mononitrate 10 mg p.o. b.i.d. 12. Metformin 500 mg p.o. b.i.d. 13. Tamsulosin 0.4 mg p.o. at bedtime. DISCHARGE PROCESS TIME: 40 minutes. Discussed plan of care with Dr. Powell. Dictated By: JAYMIE KING PATHOLOGY LABORATORY DIRECTOR for DORA BOYER/FLAVIA Conf#: [id number] DID#: [id number]
== END 2016-11-14 18:56 | disposition home or self-care (01) | DRG 309 ==
LOC: E/R 00:12 → TEL 03:07
PROVIDERS: ADMIT Internal Medicine; ATTEND Internal Medicine
DX: I48.92 Unspecified atrial flutter (principal); I69.959 Hemiplegia and hemiparesis following unspecified cerebrovascular disease affecting unspecified side; N17.9 Acute kidney failure, unspecified; I42.9 Cardiomyopathy, unspecified; I24.8 Other forms of acute ischemic heart disease; E11.9 Type 2 diabetes mellitus without complications; I10 Essential (primary) hypertension; D50.9 Iron deficiency anemia, unspecified; I25.10 Atherosclerotic heart disease of native coronary artery without angina pectoris; Z95.1 Presence of aortocoronary bypass graft; I25.5 Ischemic cardiomyopathy; N18.9 Chronic kidney disease, unspecified; I25.2 Old myocardial infarction; N28.89 Other specified disorders of kidney and ureter; Z79.01 Long term (current) use of anticoagulants; F17.200 Nicotine dependence, unspecified, uncomplicated; Z79.82 Long term (current) use of aspirin
CPT/HCPCS: 71010; 74181; 76775; 80048; 80053; 80061; 81001; 81003; 82270; 82550; 82553; 82607; 82728; 82962; 83036; 83540; 83735; 83880; 84100; 84134; 84155; 84165; 84484; 85025; 85610; 85730; 93005; 93306; J0885; J1630; J1650; J1815; J2060; J2405; J2916; J7030; J7120; J7121